=== PATIENT | male | born 1955 | race African-American/Black ===

== ENCOUNTER 2016-07-02 22:22 | Inpatient (IN) | payer OTHER ==
[~2016-07-02] VITALS: Ht 177.8 cm; Wt 72.6 kg
[2016-07-02 22:46] VITALS: BP 181/79
[2016-07-02 23:06] VITALS: BP 153/87
[2016-07-03] MEDS ORDERED: Morphine Sulfate 4mg/ml Inj IVP ONE (00:15)
[2016-07-03] MEDS ORDERED: Vancomycin 1.5gm/D5W 300ml 325 ML IVPB ONE (00:15)
[2016-07-03 01:11] LABS: MEAN CORPUSCULAR HEMOGLOBIN 27.9 PG (27.0-31.0); MEAN CORPUSCULAR HGB CONC 32.9 G/DL (32.0-36.0); MEAN CORPUSCULAR VOLUME 85 FL (80-99); PLATELET COUNT 83 K/UL (150-450); RED CELL DISTRIBUTION WIDTH 13.6 % (11.6-14.8); WHITE BLOOD COUNT 5.2 K/UL (4.8-10.8)
[2016-07-03 01:18] LABS: INR 1.3 (0.9-1.1); PROTHROMBIN TIME 13.6 SEC (9.30-11.50)
[2016-07-03 01:26] LABS: ALANINE AMINOTRANSFERASE 25 U/L (3-41); ALBUMIN/GLOBULIN RATIO 0.5 (1.0-2.7); ANION GAP 13 (5-15); ASPARTATE AMINO TRANSFERASE 62 U/L (5-40); CALCIUM 8.6 mg/dL (8.6-10.2); CARBON DIOXIDE 25 mEQ/L (20-30); CHLORIDE 97 mEQ/L (98-107); CREATININE 0.9 mg/dL (0.7-1.2); GLOMERULAR FILTRATION RATE > 60 mL/min (>60); HEMOLYSIS 1; POTASSIUM 3.5 mEQ/L (3.4-4.9); SODIUM 135 mEQ/L (135-145); TOTAL PROTEIN 7.7 g/dL (6.6-8.7)
[2016-07-03] MEDS ORDERED: Unasyn 3gm Inj ONE (01:28)
--- NOTE | 2016-07-03 01:29 | Emergency Room Report ---
History of Present Illness General Chief Complaint: Skin Rash/Abscess Source: Patient Present Illness HPI 61 YO M with left thigh "abscess" for 3-4 days following heroin injection to area. Denies fever/chills or overlying rash. States pain/size progressing. Denies DM, HTN, other med problems. Has had abscess before. Allergies: Coded Allergies: No Known Allergies (Unverified , 07/02/16) Patient History Past Medical History: none Past Surgical History: none Pertinent Family History: none Social History: Reports: drug use Immunizations: UTD Reviewed Nursing Documentation: PMH: Agreed, PSxH: Agreed Nursing Documentation-PMH Hx Hypertension: Yes Review of Systems All Other Systems: negative except mentioned in HPI Physical Exam Vital Signs Date Time Temp Pulse Resp B/P Pulse Ox O2 Delivery O2 Flow Rate FiO2 07/02/16 22:35 97.9 73 15 181/79 99 Room Air Sp02 EP Interpretation: reviewed, normal General Appearance: normal inspection, well appearing, no apparent distress, alert, GCS 15, non-toxic Head: normocephalic, atraumatic Eyes: bilateral eye EOMI, bilateral eye PERRL ENT: normal ENT inspection, hearing grossly normal, normal voice Neck: normal inspection, full range of motion, supple, no bony tend Respiratory: normal inspection, lungs clear, normal breath sounds, no respiratory distress, no retraction, no wheezing Cardiovascular #1: regular rate, rhythm, no edema Gastrointestinal: normal inspection, normal bowel sounds, non tender, soft, no guarding, no hernia Genitourinary: no CVA tenderness Musculoskeletal: normal inspection, back normal, normal range of motion, Saran' s Sign negative Neurologic: normal inspection, alert, oriented x3, responsive, wireline operator III-XII nml as tested, DTRs symmetric, speech normal Psychiatric: normal inspection, judgement/insight normal, memory normal Skin: kim - Left thigh: there is very large approx 8-10cm irregular bordered fluctuant, hard mass. No overlying erythema. Medical Decision Making Diagnostic Impression: Primary Impression: Abscess of left thigh Additional Impression: IVDU (intravenous drug user) ER Course 61 YO M with left thigh abscess likely from IVDU VSS. Afebrile. Concern for MRSA given IVDU PLAN: Labs, Vanc/Unasyn, CT lower extremity, admission, likely needed surgery for abscess removal EKG Diagnostic Results Rate: normal Rhythm: NSR ST Segments: no acute changes ASA given to the pt in ED: No Rhythm Strip Diag. Results EP Interpretation: yes Rate: 71 Rhythm: NSR, no PVC's, no ectopy Chest X-Ray Diagnostic Results EP Interpretation: Yes Findings: no consolidation, no effusion, no pneumothorax, no acute cardiopulmonary disease Number of Views: 1 Reevaluation Time: 04:41 Last Vital Signs Date Time Temp Pulse Resp B/P Pulse Ox O2 Delivery O2 Flow Rate FiO2 07/02/16 23:06 97.9 78 15 153/87 100 Room Air Status: improved Reevaluation Impression Labs: No leuks. H&H stable. Elevated total/direct bili and LFTs CT left lower extremity was done however radiologist reporting thast eval was limited because of "bone algorithm" instead of "soft tissue" algorithm was used to reconstruct images. I spoke to feed research technician, who states that the algorithm is pre -loaded for soft tissue. Some subQ edema is seen but no definitive fluid collection to suggest organized abscess IV Abx were given I will order soft tissue ultrasound to eval this area as well Patient still warrants admission and likely non-urgent GenSurg consult Endorsed to Dr Julian at 445am for med/surg admission Disposition: ADMITTED INPATIENT Condition: Serious Referrals: [facility] (PCP) BOB GUILLAUME M.D. Jul 03, 2016 01:29
[2016-07-03 01:36] LABS: CKMB 4.8 ng/mL (< 6.7)
[2016-07-03 01:48] LABS: BILIRUBIN,DIRECT 0.5 mg/dL (0.1-0.3)
[2016-07-03] MEDS: Ampicillin/Sulbactam Sod 3 GM in NS 110 ML IV SCH ×2 (02:10→06:15)
[2016-07-03 02:24] VITALS: BP 175/80
[2016-07-03 03:21] VITALS: BP 165/67
[2016-07-03] MEDS ORDERED: METHADONE HCL5 MG PO (03:25)
[2016-07-03] MEDS ORDERED: HYDROCHLOROTH12.5 MG ORAL (03:25)
[2016-07-03] MEDS ORDERED: LISINOPRIL5 MG ORAL (03:25)
[2016-07-03] MEDS ORDERED: IBUPROFEN600 MG ORAL (03:25)
[2016-07-03 05:08] VITALS: BP 180/72
[2016-07-03] MEDS ORDERED: Mylanta II UD 30ml ORAL PRN (07:15)
[2016-07-03] MEDS ORDERED: LORazepam Inj 2mg/ml 1ml IV PRN (07:15)
[2016-07-03] MEDS ORDERED: Heparin 5000 units/ml inj SUBQ SCH (09:00)
[2016-07-03] MEDS: Cefepime HCl 1 GM in D5W 55 ML IV SCH ×2 (09:58→21:23)
[2016-07-03] MEDS: Morphine Sulfate 2mg/ml Inj IVP PRN ×3 (09:59→21:29)
--- NOTE | 2016-07-03 10:17 | Diagnostic Imaging Report ---
Indication: SOB Technique: One view of the chest Comparison: none Findings: Patient is rotated to the right. Lungs and pleural spaces are clear. Heart size is normal. Impression: No acute process
--- NOTE | 2016-07-03 10:31 | Diagnostic Imaging Report ---
Indication: Left thigh pain Technique: IV administration nonionic contrast. Spiral acquisitions obtained through the left thigh. Multiplanar reconstructions were generated. Total dose length product 749 mGycm. CTDIvol(s) 5 and 5 mGy. Radiation dose was minimized using automated exposure control Comparison: None Findings: Images are somewhat limited due to image noise. There is an area of edema and the left posterior subcutaneous fat. This measures approximately 6 x 3 x 10 cm. Is made to some extent involves the lateral gluteus ab muscle No definite discrete walled off fluid collection to suggest abscess is demonstrated. No evidence of significant vascular occlusive disease is demonstrated. No significant bony abnormality is demonstrated. Impression: Exam with soft tissue cellulitis. No definite walled off collection to suggest abscess is demonstrated. However, exam is somewhat limited by image noise and use of early arterial phase acquisition. If there is high clinical suspicion of abscess, consider further evaluation with ultrasound No evidence of significant vascular disease. The CT scanner at [facility] is accredited by the [employer] and the scans are performed using protocols designed to limit radiation exposure to as low as reasonably achievable to attain images of sufficient resolution adequate for diagnostic evaluation.
[2016-07-03 11:59] VITALS: BP 187/82
[2016-07-03] MEDS: Vancomycin 1250mg/D5W 275ml IVPB SCH ×2 (13:07)
--- NOTE | 2016-07-03 15:34 | Consultation ---
Consult Note Consult Note ID CONSULT: Jose# [id number] Assessment/Plan ASSESSMENT: 61 y/o male with: // Left thigh cellulitis, probable abscess after skin popping - US: pending - CT: soft tissue cellulitis. No definite walled off collection to suggest abscess is demonstrated. However, exam is somewhat limited // Afebrile without leukocytosis // Elevated LFTs r/o hepatitis - h/o HCV SP Rx // Thrombocytopenia // IVDA ( heroin ) // NKDA // Full Code PLAN: - continue empiric IV vancomycin, cefepime d# 1 - check HIV, hepatitis panel - I&D - f/u cultures - f/u US - monitor CBC, temperatures - monitor BMP Thanks! Will follow YORDAN ALVARADO Jul 03, 2016 15:34
[2016-07-03 16:00] VITALS: BP 153/75
--- NOTE | 2016-07-03 17:42 | Consultation ---
History of Present Illness General Date patient seen: Jul 03, 2016 Chief Complaint: Skin Rash/Abscess Referring physician: Dr starr Reason for Consultation: Inpatient management Present Illness HPI 61 year old male with hx of drug abuse, presented to [facility] after injection some heroin subcutanesly a few days ago and started having pain and swelling at the injection site. Pt was diagnosed to have cellulitis and possible abscess at the injection site and admitted for further treatment. Allergies: Coded Allergies: No Known Allergies (Unverified , 07/02/16) Medication History Scheduled Hydrochlorothiazide* (Hydrochlorothiazide*), 12.5 MG ORAL DAILY, (Reported) Ibuprofen* (Motrin*), 600 MG ORAL FOUR TIMES A DAY, (Reported) Lisinopril (Lisinopril*), 5 MG ORAL DAILY, (Reported) Methadone Hcl* (Methadone*), 5 MG PO DAILY, (Reported) Patient History Healthcare decision maker Resuscitation status Advanced Directive on File Past Medical/Surgical History Past Medical/Surgical History: (1) IVDU (intravenous drug user) Review of Systems All Other Systems: negative except mentioned in HPI Physical Exam HEENT: normocephalic, atraumatic Neck: non-tender, supple Respiratory/Chest: chest wall non-tender, normal breath sounds Cardiovascular/Chest: normal peripheral pulses, normal rate Abdomen: normal bowel sounds, soft Genitourinary/Rectal: normal genital exam Last 24 Hour Vital Signs Date Time Temp Pulse Resp B/P Pulse Ox O2 Delivery O2 Flow Rate FiO2 07/03/16 16:41 98.6 07/03/16 13:06 187/82 07/03/16 11:59 98.6 63 20 187/82 97 Room Air 63 07/03/16 05:08 97.7 82 16 180/72 100 Room Air 07/03/16 03:32 97.9 78 13 165/67 100 Room Air 63 07/03/16 03:21 97.9 63 13 165/67 100 Room Air 07/03/16 02:24 97.9 64 13 175/80 100 Room Air 07/03/16 02:03 97.9 07/02/16 23:06 97.9 78 15 153/87 100 Room Air 07/02/16 22:46 97.9 79 15 181/79 99 Room Air 07/02/16 22:35 97.9 73 15 181/79 99 Room Air Intake and Output 07/02/16 07/03/16 19:00 07:00 Intake Total 1110 ml Output Total 700 ml Balance 410 ml IV Total 1110 ml Output Urine Total 700 ml # Voids 1 Laboratory Tests Test 07/03/16 00:52 White Blood Count 5.2 K/UL (4.8-10.8) Red Blood Count 4.20 M/UL (4.70-6.10) L Hemoglobin 11.7 G/DL (14.2-18.0) L Hematocrit 35.6 % (42.0-52.0) L Mean Corpuscular Volume 85 FL (80-99) Mean Corpuscular Hemoglobin 27.9 PG (27.0-31.0) Mean Corpuscular Hemoglobin Concent 32.9 G/DL (32.0-36.0) Red Cell Distribution Width 13.6 % (11.6-14.8) Platelet Count 83 K/UL (150-450) L Mean Platelet Volume 9.0 FL (6.5-10.1) Neutrophils (%) (Auto) % (45.0-75.0) Lymphocytes (%) (Auto) % (20.0-45.0) Monocytes (%) (Auto) % (1.0-10.0) Eosinophils (%) (Auto) % (0.0-3.0) Basophils (%) (Auto) % (0.0-2.0) Prothrombin Time 13.6 SEC (9.30-11.50) H Prothromb Time International Ratio 1.3 (0.9-1.1) H Activated Partial Thromboplast Time 31 SEC (23-33) Sodium Level 135 mEQ/L (135-145) Potassium Level 3.5 mEQ/L (3.4-4.9) Chloride Level 97 mEQ/L (98-107) L Carbon Dioxide Level 25 mEQ/L (20-30) Anion Gap 13 (5-15) Blood Urea Nitrogen 12 mg/dL (7-23) Creatinine 0.9 mg/dL (0.7-1.2) Estimat Glomerular Filtration Rate > 60 mL/min (>60) Glucose Level 94 mg/dL (74-106) Calcium Level 8.6 mg/dL (8.6-10.2) Total Bilirubin 1.4 mg/dL (0.0-1.2) H Direct Bilirubin 0.5 mg/dL (0.1-0.3) H Aspartate Amino Transf (AST/SGOT) 62 U/L (5-40) H Alanine Aminotransferase (ALT/SGPT) 25 U/L (3-41) Alkaline Phosphatase 77 U/L (40-129) Creatine Kinase MB 4.8 ng/mL (< 6.7) Total Protein 7.7 g/dL (6.6-8.7) Albumin 2.6 g/dL (3.5-5.2) L Globulin 5.1 g/dL Albumin/Globulin Ratio 0.5 (1.0-2.7) L Height (Feet): 5 Height (Inches): 10.00 Weight (Pounds): 160 Medications Current Medications Medications (Trade) Dose Ordered Sig/Carrington Route PRN Reason Start Time Stop Time Status Last Admin Dose Admin Acetaminophen (Tylenol) 650 mg Q4H PRN ORAL T>100.5 07/03/16 07:15 08/02/16 07:14 Al Hydroxide/Mg Hydroxide (Mylanta II) 30 ml Q6H PRN ORAL dyspepsia 07/03/16 07:15 08/02/16 07:14 Cefepime HCl 1 gm/ Dextrose 55 ml @ 110 mls/hr Q12HR IV 07/03/16 09:00 07/10/16 08:59 07/03/16 09:58 Clonidine HCl (Catapres) 0.1 mg Q4H PRN ORAL SBP>160 07/03/16 11:30 08/02/16 11:29 07/03/16 13:06 Dextrose (Dextrose 50%) STAT PRN IV Hypoglycemia 07/03/16 07:15 08/02/16 07:14 Lorazepam (Ativan 2mg/ml 1ml) 0.5 mg Q4H PRN IV For Anxiety 07/03/16 07:15 07/10/16 07:14 Methadone HCl (Methadone HCl) 55 mg DAILY ORAL 07/04/16 09:00 07/11/16 08:59 UNV Morphine Sulfate (Morphine Sulfate) 1 mg Q4H PRN IVP PAIN 4-10 07/03/16 07:15 07/10/16 07:14 07/03/16 16:11 Ondansetron HCl (Zofran) 4 mg Q6H PRN IVP Nausea & Vomiting 07/03/16 07:15 08/02/16 07:14 Polyethylene Glycol (Miralax) 17 gm HSPRN PRN ORAL Constipation 07/03/16 21:00 08/02/16 20:59 Vancomycin HCl 1 ea 1 ea DAILY PRN MISC Per rx protocol 07/03/16 07:15 08/02/16 07:14 Vancomycin HCl/ Dextrose (Vancomycin/D5W) 275 ml @ 183.333 mls/hr Q12HR@0000,1200 IVPB 07/03/16 12:00 07/08/16 11:59 07/03/16 13:07 Zolpidem Tartrate (Ambien) 5 mg HSPRN PRN ORAL Insomnia 07/03/16 21:00 08/02/16 20:59 Assessment/Plan Problem List: (1) Cellulitis ICD Codes: L03.90 - Cellulitis, unspecified SNOMED: 262820652 (2) IVDU (intravenous drug user) ICD Codes: F19.90 - Other psychoactive substance use, unspecified, uncomplicated SNOMED: 510443005 Assessment/Plan IV antibiotics check hiv status VINNIE HOSKINS Jul 03, 2016 17:42
[2016-07-03 19:00] VITALS: BP 149/72
[2016-07-03] MEDS ORDERED: Miralax 17gm pkt ORAL PRN (21:00)
[2016-07-03] MEDS ORDERED: Zolpidem 5mg tab ORAL PRN (21:00)
--- NOTE | 2016-07-03 22:49 | Consultation ---
DATE OF CONSULTATION: 07/03/2016 INFECTIOUS DISEASE CONSULTATION CONSULTING PHYSICIAN: Stu Barney M.D. REQUESTING PHYSICIAN: Alok Julian M.D. REASON FOR CONSULTATION: Abscess. HISTORY OF PRESENT ILLNESS: This is a 61-year-old male with a history of IV drug abuse, admitted on 07/03/2016, with left hip pain. The patient had skin-popped heroin . He had a CT, which shows cellulitis and no abscess, but it was a suboptimal study. An ultrasound is pending. He is afebrile without leukocytosis. Blood cultures are pending and he has been started on empiric IV vancomycin and cefepime. ID now consulted to assist in management. PAST MEDICAL HISTORY: 1. History of hepatitis C, status post treatment. 2. Hypertension. PAST SURGICAL HISTORY: None. FAMILY HISTORY: Noncontributory. SOCIAL HISTORY: History of intravenous heroin abuse. ALLERGIES: No known drug allergies. MEDICATIONS: 1. Vancomycin. 2. Cefepime. 3. Methadone. REVIEW OF SYSTEMS: As per history of present illness. Ten systems reviewed. All pertinent positives and negatives noted. PHYSICAL EXAMINATION: VITAL SIGNS: Maximum temperature 98.6 degrees, blood pressure 187/82, heart rate in the 70s, respiratory rate 20, and saturating 97% on room air. GENERAL: No apparent distress. Nontoxic appearing. CARDIOVASCULAR: Regular rate and rhythm. No murmurs. PULMONARY: Clear to auscultation bilaterally. ABDOMEN: Bowel sounds present. Soft, nondistended, and nontender. EXTREMITIES: Left hip tenderness, fluctuance, and warmth. LABORATORY DATA: White blood cell count 5.2, hemoglobin 11.7, and platelets 83,000. Sodium 135, potassium 3.5, chloride 97, bicarbonate 25, BUN 12, and creatinine 0.9. AST 62, ALT 25, and alkaline phosphatase 77. Total bilirubin 1.4. Albumin 2.6. MICROBIOLOGY: 1. 07/03/2016 blood culture pending. IMAGIN. On 07/03/2016 CT of the left hip with cellulitis and no abscess, but it had a suboptimal images. 2. On 07/03/2016 chest x-ray, no acute findings. 3. On 07/03/2016, ultrasound pending. 4. 07/03/2016, arterial and venous Doppler is pending. ASSESSMENT: 1. Left thigh cellulitis and probable abscess after skin-popping. Ultrasound is pending. No abscess on CT with a suboptimal study. 2. Afebrile without leukocytosis. 3. Elevated liver function tests, rule out hepatitis. He reportedly has a history of hepatitis C, status post treatment. 4. Thrombocytopenia. 5. Intravenous drug abuse. 6. No known drug allergies. 7. Full Code. PLAN: 1. Continue empiric IV vancomycin and cefepime day #1. 2. Check human immunodeficiency virus and hepatitis panel. 3. Follow up cultures. 4. Follow up ultrasound and incision and drainage if indicated. 5. Monitor CBC and temperatures. 6. Monitor BMP. Thank you. We will follow. Stu Barney M.D. DR: Ashvin JOB#: [id number] CC: Alok Julian M.D.; Fax#: [phone] Smith, M.D. ; Fax#: [phone]
--- NOTE | 2016-07-03 23:12 | History & Physical ---
History and Physical History & Physicial The patient was seen and examined at bedside and all new and available data was reviewed in the patients chart. Last 24 Hour Vital Signs Date Time Temp Pulse Resp B/P Pulse Ox O2 Delivery O2 Flow Rate FiO2 07/03/16 21:59 98.8 07/03/16 19:00 98.8 71 18 149/72 97 Room Air 07/03/16 16:00 99.1 69 18 153/75 98 Room Air 69 07/03/16 13:06 187/82 07/03/16 11:59 98.6 63 20 187/82 97 Room Air 63 07/03/16 05:08 97.7 82 16 180/72 100 Room Air 07/03/16 03:32 97.9 78 13 165/67 100 Room Air 63 07/03/16 03:21 97.9 63 13 165/67 100 Room Air 07/03/16 02:24 97.9 64 13 175/80 100 Room Air 07/03/16 02:03 97.9 (Patient was seen earlier today. Signature timestamp does not reflect patient encounter time) Alok Molina MD, MD Jul 03, 2016 23:12
[2016-07-04] VITALS (7 sets, daily range): BP systolic 139–169; BP diastolic 67–86
[2016-07-04] MEDS: Vancomycin 1250mg/D5W 275ml IVPB SCH ×4 (00:09→12:41)
[2016-07-04 07:39] LABS: EOSINOPHILS % (AUTO) 0.5 % (0.0-3.0); LYMPHOCYTES % (AUTO) 17.2 % (20.0-45.0); MEAN CORPUSCULAR HEMOGLOBIN 27.9 PG (27.0-31.0); MEAN CORPUSCULAR VOLUME 85 FL (80-99); MEAN PLATELET VOLUME 8.7 FL (6.5-10.1); MONOCYTES % (AUTO) 16.1 % (1.0-10.0); NEUTROPHILS % (AUTO) 61.2 % (45.0-75.0); PLATELET COUNT 136 K/UL (150-450); RED BLOOD COUNT 4.38 M/UL (4.70-6.10); RED CELL DISTRIBUTION WIDTH 13.5 % (11.6-14.8); WHITE BLOOD COUNT 4.6 K/UL (4.8-10.8)
[2016-07-04 07:47] LABS: THYROID STIMULATING HORMONE 0.417 uIU/mL (0.300-4.500)
[2016-07-04 08:13] LABS: ALANINE AMINOTRANSFERASE 21 U/L (3-41); ALBUMIN/GLOBULIN RATIO 0.5 (1.0-2.7); ANION GAP 14 (5-15); ASPARTATE AMINO TRANSFERASE 48 U/L (5-40); CALCIUM 8.3 mg/dL (8.6-10.2); CARBON DIOXIDE 24 mEQ/L (20-30); CHLORIDE 99 mEQ/L (98-107); CHOLESTEROL 65 mg/dL (< 200); CHOLESTEROL/HDL RATIO 2.4 (3.3-4.4); CREATININE 0.9 mg/dL (0.7-1.2); GLOMERULAR FILTRATION RATE > 60 mL/min (>60); HEMOLYSIS 8; LDL CHOLESTEROL (CALC.) 29 mg/dL (60-99); POTASSIUM 3.4 mEQ/L (3.4-4.9); SODIUM 137 mEQ/L (135-145); TOTAL PROTEIN 6.9 g/dL (6.6-8.7)
[2016-07-04] MEDS: Cefepime HCl 1 GM in D5W 55 ML IV SCH ×2 (10:01→20:22)
--- NOTE | 2016-07-04 10:05 | Diagnostic Imaging Report ---
Indication: Left hip swelling Technique: Limited ultrasound of the left hip Comparison: None Findings: In the area of swelling of the left hip, there is an approximately 7 x 4 x 5 cm complex irregular apparent fluid collection. Impression: Approximately 7 x 4 x 5 cm complex irregular apparent fluid collection of the left hip soft tissues. Abscess should be considered and further evaluation recommended.
[2016-07-04] MEDS: Morphine Sulfate 2mg/ml Inj IVP PRN (10:18)
--- NOTE | 2016-07-04 14:11 | Internal Med Progress Note ---
Subjective Physician Name Alok Julian Attending Physician Alok Julian MD Current Medications Medications (Trade) Dose Ordered Sig/Carrington Route PRN Reason Start Time Stop Time Status Last Admin Dose Admin Acetaminophen (Tylenol) 650 mg Q4H PRN ORAL T>100.5 07/03/16 07:15 08/02/16 07:14 Al Hydroxide/Mg Hydroxide (Mylanta II) 30 ml Q6H PRN ORAL dyspepsia 07/03/16 07:15 08/02/16 07:14 Cefepime HCl 1 gm/ Dextrose 55 ml @ 110 mls/hr Q12HR IV 07/03/16 09:00 07/10/16 08:59 07/04/16 10:01 Clonidine HCl (Catapres) 0.1 mg Q4H PRN ORAL SBP>160 07/03/16 11:30 08/02/16 11:29 07/04/16 00:09 Dextrose (Dextrose 50%) STAT PRN IV Hypoglycemia 07/03/16 07:15 08/02/16 07:14 Lorazepam (Ativan 2mg/ml 1ml) 0.5 mg Q4H PRN IV For Anxiety 07/03/16 07:15 07/10/16 07:14 Methadone HCl (Methadone HCl) 55 mg DAILY ORAL 07/04/16 09:00 07/11/16 08:59 07/04/16 12:45 Morphine Sulfate (Morphine Sulfate) 1 mg Q4H PRN IVP PAIN 4-10 07/03/16 07:15 07/10/16 07:14 07/04/16 10:18 Ondansetron HCl (Zofran) 4 mg Q6H PRN IVP Nausea & Vomiting 07/03/16 07:15 08/02/16 07:14 Polyethylene Glycol (Miralax) 17 gm HSPRN PRN ORAL Constipation 07/03/16 21:00 08/02/16 20:59 Vancomycin HCl 1 ea 1 ea DAILY PRN MISC Per rx protocol 07/03/16 07:15 08/02/16 07:14 Vancomycin HCl/ Dextrose (Vancomycin/D5W) 275 ml @ 183.333 mls/hr Q12HR@0000,1200 IVPB 07/03/16 12:00 07/08/16 11:59 07/04/16 12:41 Zolpidem Tartrate (Ambien) 5 mg HSPRN PRN ORAL Insomnia 07/03/16 21:00 08/02/16 20:59 Allergies: Coded Allergies: No Known Allergies (Unverified , 07/02/16) Subjective awake, alert, responsive, NAD Objective Last Vital Signs Date Time Temp Pulse Resp B/P Pulse Ox O2 Delivery O2 Flow Rate FiO2 07/04/16 11:40 97.8 62 19 147/68 98 Room Air Edema: trace edema Laboratory Tests Test 07/04/16 05:45 07/04/16 11:15 White Blood Count 4.6 K/UL (4.8-10.8) L Red Blood Count 4.38 M/UL (4.70-6.10) L Hemoglobin 12.2 G/DL (14.2-18.0) L Hematocrit 37.0 % (42.0-52.0) L Mean Corpuscular Volume 85 FL (80-99) Mean Corpuscular Hemoglobin 27.9 PG (27.0-31.0) Mean Corpuscular Hemoglobin Concent 33.0 G/DL (32.0-36.0) Red Cell Distribution Width 13.5 % (11.6-14.8) Platelet Count 136 K/UL (150-450) #L Mean Platelet Volume 8.7 FL (6.5-10.1) Neutrophils (%) (Auto) 61.2 % (45.0-75.0) Lymphocytes (%) (Auto) 17.2 % (20.0-45.0) L Monocytes (%) (Auto) 16.1 % (1.0-10.0) H Eosinophils (%) (Auto) 0.5 % (0.0-3.0) Basophils (%) (Auto) 5.0 % (0.0-2.0) H Sodium Level 137 mEQ/L (135-145) Potassium Level 3.4 mEQ/L (3.4-4.9) Chloride Level 99 mEQ/L (98-107) Carbon Dioxide Level 24 mEQ/L (20-30) Anion Gap 14 (5-15) Blood Urea Nitrogen 14 mg/dL (7-23) Creatinine 0.9 mg/dL (0.7-1.2) Estimat Glomerular Filtration Rate > 60 mL/min (>60) Glucose Level 67 mg/dL (74-106) L Hemoglobin A1c 5.0 % (< 6.0) Calcium Level 8.3 mg/dL (8.6-10.2) L Total Bilirubin 0.9 mg/dL (0.0-1.2) Aspartate Amino Transf (AST/SGOT) 48 U/L (5-40) H Alanine Aminotransferase (ALT/SGPT) 21 U/L (3-41) Alkaline Phosphatase 75 U/L (40-129) Total Protein 6.9 g/dL (6.6-8.7) Albumin 2.3 g/dL (3.5-5.2) L Globulin 4.6 g/dL Albumin/Globulin Ratio 0.5 (1.0-2.7) L Triglycerides Level 43 mg/dL (< 150) Cholesterol Level 65 mg/dL (< 200) LDL Cholesterol 29 mg/dL (60-99) L HDL Cholesterol 27 mg/dL (> 60) Cholesterol/HDL Ratio 2.4 (3.3-4.4) L Thyroid Stimulating Hormone (TSH) 0.417 uIU/mL (0.300-4.500) Hepatitis A IgM Antibody Pending Hepatitis B Surface Antigen Pending Hepatitis B Core IgM Antibody Pending Hepatitis C Antibody Pending HIV (1&2) Antibody Rapid Negative (NEGATIVE) Vancomycin Level Trough 13.3 ug/mL (5.0-12.0) H Microbiology Date/Time Source Procedure Growth Status 07/03/16 01:05 Blood Blood Culture - Preliminary NO GROWTH AFTER 24 HOURS Resulted 07/03/16 00:52 Blood Blood Culture - Preliminary NO GROWTH AFTER 24 HOURS Resulted Intake and Output 07/03/16 07/04/16 19:00 07:00 Intake Total 480 ml 835 ml Balance 480 ml 835 ml Intake Oral 480 ml 780 ml IV Total 55 ml # Voids 8 # Bowel Movements 2 Objective GENERAL: No apparent distress. Nontoxic appearing. HEAD: PERRLA, EOMI NECK: Supply, No JVD CARDIOVASCULAR: Regular rate and rhythm. No murmurs. PULMONARY: Clear to auscultation bilaterally. ABDOMEN: Bowel sounds present. Soft, nondistended, and nontender. EXTREMITIES: Left hip tenderness, fluctuance, and warmth. No edema Assessment/Plan Assessment/Plan ASSESSMENT: 1. Left thigh cellulitis / abscess after skin-popping. 2. Afebrile without leukocytosis. 3. Elevated liver function tests, rule out hepatitis.history of hepatitis C, status post treatment. 4. Thrombocytopenia. 5. Intravenous drug abuse. 6. Hypertension. PLAN: 1. Continue empiric IV vancomycin and cefepime day #2. 2. No known drug allergies. 3. Follow up cultures. 4. Full Code. 5. Monitor Labs 6. Surgery consult for I&D abscess. Alok Julian MD Jul 04, 2016 14:11
--- NOTE | 2016-07-04 18:19 | History and Physical Report ---
DATE OF ADMISSION: 07/03/2016 NOTE: "POOR AUDIO QUALITY" CHIEF COMPLAINT: Left hip abscess. HISTORY OF PRESENT ILLNESS: This is a 61-year-old gentleman with past medical history significant for IV drug abuse with skin-popping heroin, history of hepatitis C positive, and hypertension, who has presented to the hospital complaining about left hip pain. The patient stated several days ago, he had a heroin injection to the left thigh and subsequently started having pain progressively worsening over the past five days. It got progressively worse and he decided to come to the hospital. Shortly after initial evaluation in the emergency room, the patient was admitted to the hospital with left thigh cellulitis and possible abscess as a result of skin popping. PAST MEDICAL HISTORY: As above. History of hypertension, hepatitis C positive, and history of left upper extremity abscess. MEDICATIONS: Medication at home is significant for methadone 5 mg p.o. daily, lisinopril 5 mg daily, ibuprofen 600 mg four times a day, and hydrochlorothiazide 12.5 p.o. daily. ALLERGIES: No known drug allergy. SOCIAL HISTORY: The patient smokes four to five cigarettes a day. He uses heroin injections. He denies any alcohol abuse. He is on methadone at this time. FAMILY HISTORY: Noncontributory. REVIEW OF SYSTEMS: Mostly as above. Denies any dysuria, frequency, hematuria, or hematochezia. Denies any hemoptysis or hematochezia. Denies any suicidal or homicidal ideation. PHYSICAL EXAMINATION: VITAL SIGNS: Upon arrival to hospital, temperature 97.9 degrees, pulse of 72, respirations 15, and blood pressure 181/79. GENERAL: The patient is awake , responsive, and in no acute distress. HEAD AND NECK: Pupils are reactive to light. Extraocular movements are intact. Neck is supple. No JVD. LUNGS: Clear. No wheezing or rales. HEART: Positive S1 and S2. Regular rhythm. No gallops. ABDOMEN: Soft, distended, and nontender. Positive bowel sounds. EXTREMITIES: No cyanosis, clubbing, or edema. Over the left hip, there is noted erythema as well as a bulging soft tissue, possible underlying abscess was observed. Laboratory Data: On admission, WBC 5.3, hemoglobin 11, hematocrit 35, and platelets 83,000. Sodium 135, potassium 3.5, chloride 97, bicarbonate 25, BUN 12, creatinine 0.9, glucose 94. Total bilirubin of 1.4 and direct bilirubin 0.5. AST of 62 and ALT of 25. PT of 13, INR 1.3, and PTT of 31. The patient had chest x-ray, no acute process. CT of the femur showed that soft tissue cellulitis, no evidence of collection to suggest abscess. It demonstrated, however, examination. If there is high suspicion for abscess, consider evaluation with ultrasound. No evidence of significant vascular disease. ASSESSMENT: 1. Left hip cellulitis, possible underlying abscess. 2. Hypertension. 3. Thrombocytopenia. 4. Hepatitis C positive. PLAN: Admit the patient to Med/Surg. We will follow up with Dr. Barney, consultation from ID. Abx: vancomycin and cefepime and follow up with culture and consider ultrasound and drainage of the abscess if indicated, and we will monitor laboratory as well as culture in the morning. Code status is Full Code. DVT prophylaxis with heparin subcutaneous. Alok Julian M.D. DR: KASSANDRA JOB#: [id number] CC: TREY
--- NOTE | 2016-07-04 18:27 | Pulmonology Progress Note ---
Assessment/Plan Problems: (1) Cellulitis (2) IVDU (intravenous drug user) Assessment/Plan improivng iv antibioitcs check cultures surgery consult check wbc Subjective ROS Limited/Unobtainable: No Allergies: Coded Allergies: No Known Allergies (Unverified , 07/02/16) Objective Last 24 Hour Vital Signs Date Time Temp Pulse Resp B/P Pulse Ox O2 Delivery O2 Flow Rate FiO2 07/04/16 16:00 99.0 80 16 146/70 93 Room Air 07/04/16 11:40 97.8 62 19 147/68 98 Room Air 07/04/16 10:45 97.8 07/04/16 07:48 98.1 62 19 154/80 99 Room Air 07/04/16 04:00 97.9 60 18 155/86 100 Room Air 07/04/16 01:15 150/76 07/04/16 00:09 169/80 07/04/16 00:00 97.9 62 18 169/80 98 Room Air 07/03/16 19:00 98.8 71 18 149/72 97 Room Air Intake and Output 07/03/16 07/04/16 19:00 07:00 Intake Total 480 ml 835 ml Balance 480 ml 835 ml Intake Oral 480 ml 780 ml IV Total 55 ml # Voids 8 # Bowel Movements 2 General Appearance: WD/WN HEENT: normocephalic Respiratory/Chest: chest wall non-tender Cardiovascular: normal peripheral pulses Abdomen: normal bowel sounds Microbiology Date/Time Source Procedure Growth Status 07/03/16 01:05 Blood Blood Culture - Preliminary NO GROWTH AFTER 24 HOURS Resulted 07/03/16 00:52 Blood Blood Culture - Preliminary NO GROWTH AFTER 24 HOURS Resulted Laboratory Tests 07/04/16 05:45: White Blood Count 4.6L, Red Blood Count 4.38L, Hemoglobin 12.2L, Hematocrit 37.0L, Mean Corpuscular Volume 85, Mean Corpuscular Hemoglobin 27.9, Mean Corpuscular Hemoglobin Concent 33.0, Red Cell Distribution Width 13.5, Platelet Count 136#L, Mean Platelet Volume 8.7, Neutrophils (%) (Auto) 61.2, Lymphocytes (%) (Auto) 17.2L, Monocytes (%) (Auto) 16.1H, Eosinophils (%) (Auto) 0.5, Basophils (%) (Auto) 5.0H, Sodium Level 137, Potassium Level 3.4, Chloride Level 99, Carbon Dioxide Level 24, Anion Gap 14, Blood Urea Nitrogen 14, Creatinine 0.9, Estimat Glomerular Filtration Rate > 60, Glucose Level 67L, Hemoglobin A1c 5.0, Calcium Level 8.3L, Total Bilirubin 0.9, Aspartate Amino Transf (AST/SGOT) 48H, Alanine Aminotransferase (ALT/SGPT) 21, Alkaline Phosphatase 75, Total Protein 6.9, Albumin 2.3L, Globulin 4.6, Albumin/Globulin Ratio 0.5L, Triglycerides Level 43, Cholesterol Level 65, LDL Cholesterol 29L, HDL Cholesterol 27, Cholesterol/HDL Ratio 2.4L, Thyroid Stimulating Hormone (TSH ) 0.417, Hepatitis A IgM Antibody [Pending], Hepatitis B Surface Antigen [ Pending], Hepatitis B Core IgM Antibody [Pending], Hepatitis C Antibody [Pending ], HIV (1&2) Antibody Rapid Negative 07/04/16 11:15: Vancomycin Level Trough 13.3H Current Medications Medications (Trade) Dose Ordered Sig/Carrington Route PRN Reason Start Time Stop Time Status Last Admin Dose Admin Acetaminophen (Tylenol) 650 mg Q4H PRN ORAL T>100.5 07/03/16 07:15 08/02/16 07:14 Al Hydroxide/Mg Hydroxide (Mylanta II) 30 ml Q6H PRN ORAL dyspepsia 07/03/16 07:15 08/02/16 07:14 Cefepime HCl 1 gm/ Dextrose 55 ml @ 110 mls/hr Q12HR IV 07/03/16 09:00 07/10/16 08:59 07/04/16 10:01 Clonidine HCl (Catapres) 0.1 mg Q4H PRN ORAL SBP>160 07/03/16 11:30 08/02/16 11:29 07/04/16 00:09 Dextrose (Dextrose 50%) STAT PRN IV Hypoglycemia 07/03/16 07:15 08/02/16 07:14 Heparin Sodium (Porcine) (Heparin 5000 units/ml) 5,000 units EVERY 12 HOURS SUBQ 07/04/16 21:00 08/03/16 20:59 Lorazepam (Ativan 2mg/ml 1ml) 0.5 mg Q4H PRN IV For Anxiety 07/03/16 07:15 07/10/16 07:14 Methadone HCl (Methadone HCl) 55 mg DAILY ORAL 07/04/16 09:00 07/11/16 08:59 07/04/16 12:45 Morphine Sulfate (Morphine Sulfate) 1 mg Q4H PRN IVP PAIN 4-10 07/03/16 07:15 07/10/16 07:14 07/04/16 10:18 Ondansetron HCl (Zofran) 4 mg Q6H PRN IVP Nausea & Vomiting 07/03/16 07:15 08/02/16 07:14 Polyethylene Glycol (Miralax) 17 gm HSPRN PRN ORAL Constipation 07/03/16 21:00 08/02/16 20:59 Vancomycin HCl 1 ea 1 ea DAILY PRN MISC Per rx protocol 07/03/16 07:15 08/02/16 07:14 Vancomycin HCl/ Dextrose (Vancomycin/D5W) 275 ml @ 183.333 mls/hr Q12HR@0000,1200 IVPB 07/03/16 12:00 07/08/16 11:59 07/04/16 12:41 Zolpidem Tartrate (Ambien) 5 mg HSPRN PRN ORAL Insomnia 07/03/16 21:00 08/02/16 20:59 VINNIE HOSKINS Jul 04, 2016 18:27
[2016-07-04] MEDS: Heparin 5000 units/ml inj SUBQ SCH (20:22)
--- NOTE | 2016-07-04 21:49 | Pre-op HX & Phy Repo 2 SIG ---
DATE OF ADMISSION: 07/03/2016 PREOPERATIVE CONSULTATION REASON FOR CONSULTATION: Abscess of the left hip. HISTORY OF PRESENT ILLNESS: This is a 61-year-old male with a long history of IV drug abuse who presented to the emergency room for pain and swelling in the left hip. He stated that he has been skin popping and about three to four days ago, he developed pain in his left hip, which has gradually increased and enlarged. He denied any fever, but he had chills. He claimed that he has been using drugs for about 25-40 years. PAST MEDICAL HISTORY: He denies allergies, asthma, diabetes, cardiac and renal diseases. He has a history of hypertension. PAST SURGICAL HISTORY: Surgeries, none. MEDICATIONS: Methadone 55 mg, hydrochlorothiazide and lisinopril. SOCIAL HISTORY: This is a 61-year-old male, with six children, unemployed. Denies drinking, but smokes five to six cigarettes per day. REVIEW OF SYSTEMS: At this time, his only concern is the pain in the left hip. PHYSICAL EXAMINATION: GENERAL: The patient appeared to be a well-developed and well-nourished, 61-year-old male, lying on the bed, complaining of pain in the left hip. HEENT: Head is normocephalic and atraumatic. Eyes, pupils are equal, round, and reactive to light. Mouth is clear. He has a full denture. NECK: There is no palpable thyromegaly or adenopathy. CHEST: Clear to auscultation and percussion. HEART: There is no gallop or murmur. S1 and S2 are within normal limits. ABDOMEN: Soft, flat, and nontender. He has a small umbilical hernia. There is no palpable organomegaly and bowel sounds are audible. GENITAL: Normal. EXTREMITIES: At the left hip, he has a large area of induration with fluctuation at the middle. ASSESSMENT: Abscess of the left hip. PLAN: The patient has been scheduled for incision and drainage of the abscess in the morning. The risks and benefits have been explained to him. He understood and granted consent. Glenys Segura M.D. DR: ALBERTA JOB#: [id number] CC:
[2016-07-04] MEDS ORDERED: Tubing IV Secondary IV ONE (22:52)
[2016-07-04] MEDS ORDERED: 1/2 NS 1000ml IV ONE (22:52)
[2016-07-04] MEDS ORDERED: NS 275ml ONE (22:52)
[2016-07-05] VITALS (14 sets, daily range): BP systolic 136–213; BP diastolic 69–97
[2016-07-05] MEDS: Vancomycin 1250mg/D5W 275ml IVPB SCH ×4 (01:04→14:15)
[2016-07-05] MEDS: Morphine Sulfate 2mg/ml Inj IVP PRN (01:27)
[2016-07-05] MEDS: Heparin 5000 units/ml inj SUBQ SCH ×2 (08:15→21:00)
[2016-07-05] MEDS: Cefepime HCl 1 GM in D5W 55 ML IV SCH ×2 (08:30→22:37)
--- NOTE | 2016-07-05 10:10 | Pre-Procedure Note/Attestation ---
Pre-Procedure Note/Attestation Complete Prior to Procedure Planned Procedure: left Procedure Narrative: Incision & Drainage of abscess left hip Indications for Procedure Pre-Operative Diagnosis: Abscess left hip Attestation I attest that I discussed the nature of the procedure; its benefits; risks and complications; and alternatives (and the risks and benefits of such alternatives ), prior to the procedure, with the patient (or the patient's legal sales utility representative). I attest that, if there was a reasonable possibility of needing a blood transfusion, the patient (or the patient's legal sales utility representative) was given the [facility] standardized written summary, pursuant to the Mumtaz Shauna Blood Safety Act ([place] Health and Safety Code # 1645, as amended). I attest that I re-evaluated the patient just prior to the surgery and that there has been no change in the patient's H&P, except as documented below: DAHIANA TEIXEIRA Jul 05, 2016 10:10
[2016-07-05] MEDS ORDERED: Lidocaine 1% MPF 10mg/ml 5ml ONE (11:20)
[2016-07-05] MEDS ORDERED: fentaNYL 100 mcg/2 mL IV ONE (11:20)
[2016-07-05] MEDS ORDERED: LR 1000ml ONE (11:20)
[2016-07-05] MEDS ORDERED: Sterile Water Irrig 1000ml IRRIG ONE (11:20)
[2016-07-05] MEDS ORDERED: Propofol 10mg/ml 20ml IV ONE (11:20)
[2016-07-05] MEDS ORDERED: NS Irrig 1000ml ONE (11:20)
[2016-07-05] MEDS ORDERED: Midazolam 2mg/2ml Inj ONE (11:20)
[2016-07-05] MEDS ORDERED: Triple abx Irrig 1000ml IRRIG ONE (11:30)
--- NOTE | 2016-07-05 11:35 | Infectious Diseases Prog Note ---
Assessment/Plan Assessment/Plan ID CONSULT: Jose# [id number] Assessment/Plan ASSESSMENT: 61 y/o male with: // Left thigh cellulitis, probable abscess after skin popping - US: Approximately 7 x 4 x 5 cm complex irregular apparent fluid collection of the left hip soft tissues. - CT: soft tissue cellulitis. No definite walled off collection to suggest abscess is demonstrated. However, exam is somewhat limited // Afebrile without leukocytosis // HIV :neg // Elevated LFTs r/o hepatitis - h/o HCV SP Rx // Thrombocytopenia // IVDA ( heroin ) // NKDA // Full Code PLAN: - continue empiric IV vancomycin, cefepime d# 3 - hepatitis panel:P - f/u cultures - monitor CBC, temperatures - monitor BMP - pt is OR for I&D Subjective Allergies: Coded Allergies: No Known Allergies (Unverified , 07/02/16) Subjective pt is in OR Objective Vital Signs Last 24 Hour Vital Signs Date Time Temp Pulse Resp B/P Pulse Ox O2 Delivery O2 Flow Rate FiO2 07/05/16 06:03 98.2 07/05/16 04:00 101.5 67 20 155/83 98 Room Air 07/05/16 01:27 162/96 07/05/16 00:00 99.0 61 20 162/96 98 Room Air 07/04/16 20:00 98.4 74 18 139/67 96 Room Air 07/04/16 16:00 99.0 80 16 146/70 93 Room Air 07/04/16 11:40 97.8 62 19 147/68 98 Room Air Height (Feet): 5 Height (Inches): 10.00 Weight (Pounds): 160 Microbiology Date/Time Source Procedure Growth Status 07/03/16 01:05 Blood Blood Culture - Preliminary NO GROWTH AFTER 48 HOURS Resulted 07/03/16 00:52 Blood Blood Culture - Preliminary NO GROWTH AFTER 48 HOURS Resulted Current Medications Medications (Trade) Dose Ordered Sig/Carrington Route PRN Reason Start Time Stop Time Status Last Admin Dose Admin Acetaminophen (Tylenol) 650 mg Q4H PRN ORAL T>100.5 07/03/16 07:15 08/02/16 07:14 07/05/16 05:04 Al Hydroxide/Mg Hydroxide (Mylanta II) 30 ml Q6H PRN ORAL dyspepsia 07/03/16 07:15 08/02/16 07:14 Cefepime HCl 1 gm/ Dextrose 55 ml @ 110 mls/hr Q12HR IV 07/03/16 09:00 07/10/16 08:59 07/05/16 08:30 Clonidine HCl (Catapres) 0.1 mg Q4H PRN ORAL SBP>160 07/03/16 11:30 08/02/16 11:29 07/05/16 01:27 Dextrose (Dextrose 50%) STAT PRN IV Hypoglycemia 07/03/16 07:15 08/02/16 07:14 Heparin Sodium (Porcine) (Heparin 5000 units/ml) 5,000 units EVERY 12 HOURS SUBQ 07/04/16 21:00 08/03/16 20:59 Lorazepam (Ativan 2mg/ml 1ml) 0.5 mg Q4H PRN IV For Anxiety 07/03/16 07:15 07/10/16 07:14 Methadone HCl (Methadone HCl) 55 mg DAILY ORAL 07/04/16 09:00 07/11/16 08:59 07/05/16 08:29 Morphine Sulfate (Morphine Sulfate) 1 mg Q4H PRN IVP PAIN 4-10 07/03/16 07:15 07/10/16 07:14 07/05/16 01:27 Ondansetron HCl (Zofran) 4 mg Q6H PRN IVP Nausea & Vomiting 07/03/16 07:15 08/02/16 07:14 Polyethylene Glycol (Miralax) 17 gm HSPRN PRN ORAL Constipation 07/03/16 21:00 08/02/16 20:59 Vancomycin HCl 1 ea 1 ea DAILY PRN MISC Per rx protocol 07/03/16 07:15 08/02/16 07:14 Vancomycin HCl/ Dextrose (Vancomycin/D5W) 275 ml @ 183.333 mls/hr Q12HR@0000,1200 IVPB 07/03/16 12:00 07/08/16 11:59 07/05/16 01:04 Zolpidem Tartrate (Ambien) 5 mg HSPRN PRN ORAL Insomnia 07/03/16 21:00 08/02/16 20:59 TEJINDER DYE M.D. Jul 05, 2016 11:34
--- NOTE | 2016-07-05 11:50 | Internal Med Progress Note ---
Subjective Physician Name Alok Julian Attending Physician Alok Julian MD Current Medications Medications (Trade) Dose Ordered Sig/Carrington Route PRN Reason Start Time Stop Time Status Last Admin Dose Admin Acetaminophen (Tylenol) 650 mg Q4H PRN ORAL T>100.5 07/03/16 07:15 08/02/16 07:14 07/05/16 05:04 Al Hydroxide/Mg Hydroxide (Mylanta II) 30 ml Q6H PRN ORAL dyspepsia 07/03/16 07:15 08/02/16 07:14 Cefepime HCl 1 gm/ Dextrose 55 ml @ 110 mls/hr Q12HR IV 07/03/16 09:00 07/10/16 08:59 07/05/16 08:30 Clonidine HCl (Catapres) 0.1 mg Q4H PRN ORAL SBP>160 07/03/16 11:30 08/02/16 11:29 07/05/16 01:27 Dextrose (Dextrose 50%) STAT PRN IV Hypoglycemia 07/03/16 07:15 08/02/16 07:14 Heparin Sodium (Porcine) (Heparin 5000 units/ml) 5,000 units EVERY 12 HOURS SUBQ 07/04/16 21:00 08/03/16 20:59 Lorazepam (Ativan 2mg/ml 1ml) 0.5 mg Q4H PRN IV For Anxiety 07/03/16 07:15 07/10/16 07:14 Methadone HCl (Methadone HCl) 55 mg DAILY ORAL 07/04/16 09:00 07/11/16 08:59 07/05/16 08:29 Morphine Sulfate (Morphine Sulfate) 1 mg Q4H PRN IVP PAIN 4-10 07/03/16 07:15 07/10/16 07:14 07/05/16 01:27 Ondansetron HCl (Zofran) 4 mg Q6H PRN IVP Nausea & Vomiting 07/03/16 07:15 08/02/16 07:14 Polyethylene Glycol (Miralax) 17 gm HSPRN PRN ORAL Constipation 07/03/16 21:00 08/02/16 20:59 Vancomycin HCl 1 ea 1 ea DAILY PRN MISC Per rx protocol 07/03/16 07:15 08/02/16 07:14 Vancomycin HCl/ Dextrose (Vancomycin/D5W) 275 ml @ 183.333 mls/hr Q12HR@0000,1200 IVPB 07/03/16 12:00 07/08/16 11:59 07/05/16 01:04 Zolpidem Tartrate (Ambien) 5 mg HSPRN PRN ORAL Insomnia 07/03/16 21:00 08/02/16 20:59 Allergies: Coded Allergies: No Known Allergies (Unverified , 07/02/16) Subjective awake, alert, responsive, NAD Objective Last Vital Signs Date Time Temp Pulse Resp B/P Pulse Ox O2 Delivery O2 Flow Rate FiO2 07/05/16 08:00 98.1 58 16 154/77 100 Room Air Microbiology Date/Time Source Procedure Growth Status 07/03/16 01:05 Blood Blood Culture - Preliminary NO GROWTH AFTER 48 HOURS Resulted 07/03/16 00:52 Blood Blood Culture - Preliminary NO GROWTH AFTER 48 HOURS Resulted Intake and Output 07/04/16 07/05/16 19:00 07:00 Intake Total 500 ml 415 ml Balance 500 ml 415 ml Intake Oral 500 ml 360 ml IV Total 55 ml # Voids 2 4 Objective GENERAL: No apparent distress. Nontoxic appearing. HEAD: PERRLA, EOMI NECK: Supply, No JVD CARDIOVASCULAR: Regular rate and rhythm. No murmurs. PULMONARY: Clear to auscultation bilaterally. ABDOMEN: Bowel sounds present. Soft, nondistended, and nontender. EXTREMITIES: Left hip tenderness, fluctuance, and warmth. No edema Assessment/Plan Assessment/Plan ASSESSMENT: 1. Left thigh cellulitis / abscess after skin-popping. 2. Afebrile without leukocytosis. 3. Elevated liver function tests, rule out hepatitis.history of hepatitis C, status post treatment. 4. Thrombocytopenia. 5. Intravenous drug abuse. 6. Hypertension. PLAN: 1. Continue empiric IV vancomycin and cefepime day #3. 2. No known drug allergies. 3. Follow up cultures. 4. Full Code. 5. Monitor Labs 6. Surgery consult for I&D abscess today. Alok Julian MD Jul 05, 2016 11:50
--- NOTE | 2016-07-05 11:51 | Anethesia Preoperative Eval ---
Anesthesia Pre-op PMH/ROS General Date of Evaluation: Jul 05, 2016 Time of Evaluation: 11:18 Anesthesiologist: Benito ASA Score: ASA 3 - Emergency Mallampati Score Class I : Soft palate, uvula, fauces, pillars visible Class II: Soft palate, uvula, fauces visible Class III: Soft palate, base of uvula visible Class IV: Only hard plate visible Mallampati Classification: Class II Surgeon: Imelda Diagnosis: L Hip Abscess Surgical Procedure: I and D L Hip Anesthesia History: none Social History: smoking, drug use - ABUSE Family History: no anesthesia problems Allergies: Coded Allergies: No Known Allergies (Unverified , 07/02/16) Medications: see eMAR Past Medical History Cardiovascular: Reports: HTN Endocrine: Reports: DM Hematology/Immune: Reports: other - Hep B Anesthesia Pre-op Phys. Exam Physician Exam Last Vital Signs Date Time Temp Pulse Resp B/P Pulse Ox O2 Delivery O2 Flow Rate FiO2 07/05/16 08:00 98.1 58 16 154/77 100 Room Air Constitutional: NAD Neurologic: CN 2-12 intact Cardiovascular: RRR Respiratory: CTA Gastrointestinal: S/NT/ND Airway Exam Mallampati Score: Class II MO: limited ROM: limited Teeth: missing Anesthesia Pre-op A/P Risk Assessment & Plan Assessment: ASA 3E Plan: GA, BIS Status Change Before Surgery: No Pre-Antibiotics Drug: Already Taking Ronald Oliver MD Jul 05, 2016 11:51
--- NOTE | 2016-07-05 11:57 | Brief Operative Note ---
Immediate Post Operative Note Operative Note Pre-op Diagnosis: Abscess left hip Procedure: I&D of abscess of left hip Post-op Diagnosis: same as pre-op Findings: consistent w/pre-op dx studies Surgeon: Eusebio Segura Speedboat Operator: none Anesthesiologist: Dr. Leach Anesthesia: general Specimen: none Complications: none Condition: stable Estimated Blood Loss: minimal Packing: Betadine soaked sponge Implant(s) used?: DAHIANA Dunham Jul 05, 2016 11:57
[2016-07-05] MEDS ORDERED: DiphenhydrAMINE 50mg/ml Inj IVP PRN (12:00)
[2016-07-05] MEDS ORDERED: LR 1000ml 1,000 ML IVLG SCH (12:00)
[2016-07-05] MEDS ORDERED: Hydromorphone 0.5mg/0.5ml inj IVP PRN (12:00)
[2016-07-05] MEDS ORDERED: Meperidine 25mg/ml Inj IV PRN (12:00)
[2016-07-05] MEDS ORDERED: Ketorolac 60mg Inj IV PRN (12:00)
[2016-07-05] MEDS ORDERED: Norco 5mg/325mg tab ORAL PRN (12:00)
[2016-07-05] MEDS ORDERED: Midazolam 2mg/2ml Inj IVP PRN (12:00)
[2016-07-05] MEDS ORDERED: Ketorolac 30mg Inj IV PRN (12:00)
[2016-07-05] MEDS ORDERED: Labetalol 5mg/ml 20ml vial IV PRN (12:00)
[2016-07-05] MEDS ORDERED: Norco 7.5mg/325mg tab ORAL PRN (12:00)
[2016-07-05] MEDS ORDERED: Atropine Inj 1mg/10ml Syr IV PRN (12:00)
[2016-07-05] MEDS ORDERED: Metoclopramide 10mg/2ml Inj IVP PRN (12:00)
[2016-07-05] MEDS ORDERED: Oxycodone/Acetaminophen 5-325 ORAL PRN (12:00)
[2016-07-05] MEDS ORDERED: LORazepam Inj 2mg/ml 1ml IV PRN (12:00)
--- NOTE | 2016-07-05 12:04 | Immediate Post-Op Evaluation ---
Immediate Post-Op Evalulation Immediate Post-Op Evalulation Procedure: I&D L Hip Abcess Date of Evaluation: Jul 05, 2016 Time of Evaluation: 12:13 IV Fluids: 900 LR Blood Products: 0 Estimated Blood Loss: 10 Urinary Output: 0 Blood Pressure Systolic: 182 Blood Pressure Diastolic: 84 Pulse Rate: 56 Respiratory Rate: 16 O2 Sat by Pulse Oximetry: 100 Temperature (Fahrenheit): 98.6 Pain Score (1-10): 2 Nausea: No Vomiting: No Complications 0 Patient Status: awake, reacts, patent, extubated, none Drug: Already Taking Ronald Oliver MD Jul 05, 2016 12:04
[2016-07-05] MEDS: fentaNYL 100 mcg/2 mL IV PRN ×2 (12:31→12:43)
--- NOTE | 2016-07-05 15:42 | Pulmonology Progress Note ---
Assessment/Plan Problems: (1) Cellulitis (2) IVDU (intravenous drug user) Assessment/Plan s/p I/D improivng iv antibioitcs check cultures surgery consult check wbc Subjective ROS Limited/Unobtainable: No Interval Events: I/D of the leg abscess Allergies: Coded Allergies: No Known Allergies (Unverified , 07/02/16) Objective Last 24 Hour Vital Signs Date Time Temp Pulse Resp B/P Pulse Ox O2 Delivery O2 Flow Rate FiO2 07/05/16 13:05 98.4 07/05/16 13:01 98.4 58 13 160/76 100 Nasal Cannula 3.0 07/05/16 13:00 98.4 07/05/16 12:55 59 14 176/85 100 Nasal Cannula 3.0 07/05/16 12:40 57 15 179/79 100 Nasal Cannula 3.0 07/05/16 12:30 63 22 199/92 100 Nasal Cannula 3.0 07/05/16 12:26 65 213/96 07/05/16 12:20 65 25 213/96 100 Simple Mask 6.0 07/05/16 12:19 202/97 07/05/16 12:15 62 18 202/97 100 Simple Mask 6.0 07/05/16 12:08 98.6 57 15 188/82 100 Simple Mask 6.0 07/05/16 12:04 56 16 100 07/05/16 08:00 98.1 58 16 154/77 100 Room Air 07/05/16 06:03 98.2 07/05/16 04:00 101.5 67 20 155/83 98 Room Air 07/05/16 01:27 162/96 07/05/16 00:00 99.0 61 20 162/96 98 Room Air 07/04/16 20:00 98.4 74 18 139/67 96 Room Air 07/04/16 16:00 99.0 80 16 146/70 93 Room Air Intake and Output 07/04/16 07/05/16 19:00 07:00 Intake Total 555 ml 415 ml Balance 555 ml 415 ml Intake Oral 500 ml 360 ml IV Total 55 ml 55 ml # Voids 2 4 General Appearance: WD/WN Respiratory/Chest: chest wall non-tender, normal breath sounds Cardiovascular: normal peripheral pulses, normal rate Abdomen: normal bowel sounds, soft, non tender Genitourinary: normal external genitalia Skin: no rash Microbiology Date/Time Source Procedure Growth Status 07/03/16 01:05 Blood Blood Culture - Preliminary NO GROWTH AFTER 48 HOURS Resulted 07/03/16 00:52 Blood Blood Culture - Preliminary NO GROWTH AFTER 48 HOURS Resulted Current Medications Medications (Trade) Dose Ordered Sig/Carrington Route PRN Reason Start Time Stop Time Status Last Admin Dose Admin Acetaminophen (Tylenol) 650 mg Q4H PRN ORAL T>100.5 07/03/16 07:15 08/02/16 07:14 07/05/16 05:04 Acetaminophen/ Hydrocodone Bitart ([place] 5/325) 1 tab Q1H PRN ORAL Mild Pain (Pain Scale 1-3) 07/05/16 12:00 07/05/16 18:00 Acetaminophen/ Hydrocodone Bitart ([place] 7.5/325) 1 ea Q1H PRN ORAL Moderate Pain (Pain Scale 4-6) 07/05/16 12:00 07/05/16 18:00 Al Hydroxide/Mg Hydroxide (Mylanta II) 30 ml Q6H PRN ORAL dyspepsia 07/03/16 07:15 08/02/16 07:14 Al Hydroxide/Mg Hydroxide (Mylanta) 15 ml Q1H PRN ORAL gi upset 07/05/16 12:00 07/05/16 18:00 Atropine Sulfate 0.5 mg 0.5 mg Q5M PRN IV HR <40 07/05/16 12:00 07/05/16 18:00 Cefepime HCl 1 gm/ Dextrose 55 ml @ 110 mls/hr Q12HR IV 07/03/16 09:00 07/10/16 08:59 07/05/16 08:30 Clonidine HCl (Catapres) 0.1 mg Q4H PRN ORAL SBP>160 07/03/16 11:30 08/02/16 11:29 07/05/16 01:27 Dextrose (Dextrose 50%) STAT PRN IV Hypoglycemia 07/03/16 07:15 08/02/16 07:14 Diphenhydramine HCl (Benadryl) 25 mg Q15M PRN IVP Itching 07/05/16 12:00 07/05/16 18:00 07/05/16 12:48 Heparin Sodium (Porcine) (Heparin 5000 units/ml) 5,000 units EVERY 12 HOURS SUBQ 07/04/16 21:00 08/03/16 20:59 Hydralazine HCl (Apresoline) 5 mg Q30M PRN IV SBP>160 / DBP>90 07/05/16 12:00 07/05/16 18:00 07/05/16 12:19 Hydromorphone HCl (Dilaudid) 0.5 mg Q15M PRN IVP Severe Pain (Pain Scale 7-10) 07/05/16 12:00 07/05/16 18:00 Ketorolac Tromethamine (Toradol 30mg) 15 mg Q1H PRN IV Moderate Breakthru Pain (5-7) 07/05/16 12:00 07/05/16 18:00 Ketorolac Tromethamine (Toradol) 60 mg Q1H PRN IV Severe Breakthru Pain (>7) 07/05/16 12:00 07/05/16 18:00 07/05/16 12:33 Labetalol HCl (Normodyne) 5 mg Q10M PRN IV SBP>160 / DBP>90 07/05/16 12:00 07/05/16 18:00 07/05/16 12:26 Lactated Ringer's (Lactated Ringer's 1000ml) 1,000 ml @ 10 mls/hr Q24H IVLG 07/05/16 12:00 07/05/16 18:00 Lorazepam (Ativan 2mg/ml 1ml) 0.5 mg Q4H PRN IV For Anxiety 07/03/16 07:15 07/10/16 07:14 Lorazepam (Ativan 2mg/ml 1ml) 1 mg Q15M PRN IV For Anxiety 07/05/16 12:00 07/05/16 18:00 Meperidine HCl (Demerol) 25 mg Q5M PRN IV Shivering. May repeat x 1 07/05/16 12:00 07/05/16 18:00 Methadone HCl (Methadone HCl) 55 mg DAILY ORAL 07/04/16 09:00 07/11/16 08:59 07/05/16 08:29 Metoclopramide HCl (Reglan) 10 mg Q1H PRN IVP Nausea & Vomiting 07/05/16 12:00 07/05/16 18:00 Midazolam HCl (Versed 2mg/2ml vial) 1 mg Q15M PRN IVP For Anxiety 07/05/16 12:00 07/05/16 18:00 Morphine Sulfate (Morphine Sulfate) 1 mg Q4H PRN IVP PAIN 4-10 07/03/16 07:15 07/10/16 07:14 07/05/16 01:27 Ondansetron HCl (Zofran) 4 mg Q1H PRN IVP Nausea & Vomiting 07/05/16 12:00 07/05/16 18:00 Ondansetron HCl (Zofran) 4 mg Q6H PRN IVP Nausea & Vomiting 07/03/16 07:15 08/02/16 07:14 Oxycodone/ Acetaminophen (Percocet 5-325) 1 tab Q1H PRN ORAL Severe Pain (Pain Scale 7-10) 07/05/16 12:00 07/05/16 18:00 Polyethylene Glycol (Miralax) 17 gm HSPRN PRN ORAL Constipation 07/03/16 21:00 08/02/16 20:59 Vancomycin HCl 1 ea 1 ea DAILY PRN MISC Per rx protocol 07/03/16 07:15 08/02/16 07:14 Vancomycin HCl/ Dextrose (Vancomycin/D5W) 275 ml @ 183.333 mls/hr Q12HR@0000,1200 IVPB 07/03/16 12:00 07/08/16 11:59 07/05/16 14:15 Zolpidem Tartrate (Ambien) 5 mg HSPRN PRN ORAL Insomnia 07/03/16 21:00 08/02/16 20:59 VINNIE HOSKINS Jul 05, 2016 15:42
--- NOTE | 2016-07-05 19:29 | Operative Note - Dictated ---
DATE OF OPERATION: 07/05/2016 PREOPERATIVE DIAGNOSIS: Abscess of the left hip area. POSTOPERATIVE DIAGNOSIS: Abscess of the left hip area. OPERATION: An incision and drainage of the abscess. COMPLICATION: None. SURGEON: Glenys Segura M.D. GEOLOGICAL SURVEY FIELD ASSISTANT: None. ANESTHESIA: General with laryngeal mask. ANESTHESIOLOGIST: Ronald Oliver M.D. INDICATION: This is a 61-year-old, male with a long history of drug abuse, who presented with pain and swelling at the left hip for few days. Apparently, he has had fever and chills the day before the admission. Physical examination showed an abscess at the left hip but the CBC was within normal limits. DESCRIPTION OF PROCEDURE: The patient was placed supine on the operating table and after general anesthesia, with the laryngeal mask, he was placed in the right decubitus position, and the left hip was properly prepped and draped. The area with the fluctuation was identified and the incision was given. The incision was carried sharply through the subcutaneous tissue, which entered into the large cavity and large amount of pus, which was under pressure was drained. In fact the pus was splashed out. All the pus was completely drained and suctioned out. The cavity was irrigated with antibiotic solution and then the cavity was unroofed with removing the skin and subcutaneous tissue. The bleeding points were controlled and then the cavity was packed with Betadine-soaked sponge. The patient tolerated the procedure very well and was transferred to recovery in stable condition and extubated. The sponge and needle count were correct. Estimated blood loss was 10 mL. Condition of the patient at the end of procedure was stable. Glenys Segura M.D. DR: LISA JOB#: [id number] CC:
[2016-07-06] VITALS: BP 172/84
[2016-07-06] MEDS: Vancomycin 1250mg/D5W 275ml IVPB SCH ×4 (00:17→12:43)
[2016-07-06 04:00] VITALS: BP 143/75
[2016-07-06 07:41] LABS: ALANINE AMINOTRANSFERASE 19 U/L (3-41); ALBUMIN/GLOBULIN RATIO 0.4 (1.0-2.7); ANION GAP 10 (5-15); ASPARTATE AMINO TRANSFERASE 45 U/L (5-40); CALCIUM 8.1 mg/dL (8.6-10.2); CARBON DIOXIDE 24 mEQ/L (20-30); CHLORIDE 103 mEQ/L (98-107); CREATININE 0.9 mg/dL (0.7-1.2); GLOMERULAR FILTRATION RATE > 60 mL/min (>60); HEMOLYSIS 1; PHOSPHORUS 3.2 mg/dL (2.5-4.8); POTASSIUM 4.1 mEQ/L (3.4-4.9); SODIUM 137 mEQ/L (135-145); TOTAL PROTEIN 6.5 g/dL (6.6-8.7)
[2016-07-06 07:47] LABS: MEAN CORPUSCULAR HEMOGLOBIN 27.9 PG (27.0-31.0); MEAN CORPUSCULAR HGB CONC 32.6 G/DL (32.0-36.0); MEAN CORPUSCULAR VOLUME 86 FL (80-99); MEAN PLATELET VOLUME 7.9 FL (6.5-10.1); PLATELET COUNT 150 K/UL (150-450); RED CELL DISTRIBUTION WIDTH 13.9 % (11.6-14.8); WHITE BLOOD COUNT 3.4 K/UL (4.8-10.8)
[2016-07-06 07:58] VITALS: BP 150/83
[2016-07-06] MEDS: Cefepime HCl 1 GM in D5W 55 ML IV SCH ×2 (09:45→21:24)
[2016-07-06] MEDS: Heparin 5000 units/ml inj SUBQ SCH ×2 (09:48→20:09)
[2016-07-06 10:51] LABS: BAND NEUTROPHILS % (MANUAL) 0 % (0-8); BASOPHILS % (MANUAL) 0 % (0-2); EOSINOPHILS % (MANUAL) 1 % (0-3); LYMPHOCYTES % (MANUAL) 24 % (20-45); NEUTROPHILS % (MANUAL) 62 % (45-75); PLATELET ESTIMATE ADEQUATE; PLATELET MORPHOLOGY NORMAL; TOTAL CELLS COUNTED 100
[2016-07-06 12:15] VITALS: BP 146/78
--- NOTE | 2016-07-06 12:24 | Internal Med Progress Note ---
Subjective Date of Service: Jul 06, 2016 Physician Name Jc Ordaz Attending Physician Alok Julian MD Current Medications Medications (Trade) Dose Ordered Sig/Carrington Route PRN Reason Start Time Stop Time Status Last Admin Dose Admin Acetaminophen (Tylenol) 650 mg Q4H PRN ORAL T>100.5 07/03/16 07:15 08/02/16 07:14 07/05/16 05:04 Al Hydroxide/Mg Hydroxide (Mylanta II) 30 ml Q6H PRN ORAL dyspepsia 07/03/16 07:15 08/02/16 07:14 07/06/16 00:15 Cefepime HCl 1 gm/ Dextrose 55 ml @ 110 mls/hr Q12HR IV 07/03/16 09:00 07/10/16 08:59 07/06/16 09:45 Clonidine HCl (Catapres) 0.1 mg Q4H PRN ORAL SBP>160 07/03/16 11:30 08/02/16 11:29 07/06/16 00:35 Dextrose (Dextrose 50%) STAT PRN IV Hypoglycemia 07/03/16 07:15 08/02/16 07:14 Heparin Sodium (Porcine) (Heparin 5000 units/ml) 5,000 units EVERY 12 HOURS SUBQ 07/04/16 21:00 08/03/16 20:59 Lorazepam (Ativan 2mg/ml 1ml) 0.5 mg Q4H PRN IV For Anxiety 07/03/16 07:15 07/10/16 07:14 Methadone HCl (Methadone HCl) 5 mg DAILY ORAL 07/07/16 09:00 07/14/16 08:59 Methadone HCl (Methadone HCl) 50 mg DAILY ORAL 07/07/16 09:00 07/14/16 08:59 Morphine Sulfate (Morphine Sulfate) 1 mg Q4H PRN IVP PAIN 4-10 07/03/16 07:15 07/10/16 07:14 07/05/16 01:27 Ondansetron HCl (Zofran) 4 mg Q6H PRN IVP Nausea & Vomiting 07/03/16 07:15 08/02/16 07:14 Polyethylene Glycol (Miralax) 17 gm HSPRN PRN ORAL Constipation 07/03/16 21:00 08/02/16 20:59 Vancomycin HCl 1 ea 1 ea DAILY PRN MISC Per rx protocol 07/03/16 07:15 08/02/16 07:14 Vancomycin HCl/ Dextrose (Vancomycin/D5W) 275 ml @ 183.333 mls/hr Q12HR@0000,1200 IVPB 07/03/16 12:00 07/08/16 11:59 07/06/16 00:17 Zolpidem Tartrate (Ambien) 5 mg HSPRN PRN ORAL Insomnia 07/03/16 21:00 08/02/16 20:59 Allergies: Coded Allergies: No Known Allergies (Unverified , 07/02/16) ROS Limited/Unobtainable: No Constitutional: Reports: no symptoms HEENT: Reports: no symptoms Cardiovascular: Reports: no symptoms Respiratory: Reports: no symptoms Gastrointestinal/Abdominal: Reports: no symptoms Genitourinary: Reports: no symptoms Neurologic/Psychiatric: Reports: other - left hip pain Subjective 61 YO M admitted with left hip abscess. Cover for Int Med Dr Julian. S/P Incision and drainage 07/05/16 Objective Last Vital Signs Date Time Temp Pulse Resp B/P Pulse Ox O2 Delivery O2 Flow Rate FiO2 07/06/16 12:15 98.3 57 19 146/78 99 Room Air 07/05/16 13:01 3.0 Laboratory Tests Test 07/06/16 06:50 White Blood Count 3.4 K/UL (4.8-10.8) L Red Blood Count 4.50 M/UL (4.70-6.10) L Hemoglobin 12.6 G/DL (14.2-18.0) L Hematocrit 38.5 % (42.0-52.0) L Mean Corpuscular Volume 86 FL (80-99) Mean Corpuscular Hemoglobin 27.9 PG (27.0-31.0) Mean Corpuscular Hemoglobin Concent 32.6 G/DL (32.0-36.0) Red Cell Distribution Width 13.9 % (11.6-14.8) Platelet Count 150 K/UL (150-450) Mean Platelet Volume 7.9 FL (6.5-10.1) Neutrophils (%) (Auto) % (45.0-75.0) Lymphocytes (%) (Auto) % (20.0-45.0) Monocytes (%) (Auto) % (1.0-10.0) Eosinophils (%) (Auto) % (0.0-3.0) Basophils (%) (Auto) % (0.0-2.0) Differential Total Cells Counted 100 Neutrophils % (Manual) 62 % (45-75) Lymphocytes % (Manual) 24 % (20-45) Monocytes % (Manual) 13 % (1-10) H Eosinophils % (Manual) 1 % (0-3) Basophils % (Manual) 0 % (0-2) Band Neutrophils 0 % (0-8) Platelet Estimate Adequate Platelet Morphology Normal Red Blood Cell Morphology Normal Sodium Level 137 mEQ/L (135-145) Potassium Level 4.1 mEQ/L (3.4-4.9) Chloride Level 103 mEQ/L (98-107) Carbon Dioxide Level 24 mEQ/L (20-30) Anion Gap 10 (5-15) Blood Urea Nitrogen 16 mg/dL (7-23) Creatinine 0.9 mg/dL (0.7-1.2) Estimat Glomerular Filtration Rate > 60 mL/min (>60) Glucose Level 119 mg/dL (74-106) H Calcium Level 8.1 mg/dL (8.6-10.2) L Phosphorus Level 3.2 mg/dL (2.5-4.8) Magnesium Level 2.0 mg/dL (1.7-2.5) Total Bilirubin 0.6 mg/dL (0.0-1.2) Aspartate Amino Transf (AST/SGOT) 45 U/L (5-40) H Alanine Aminotransferase (ALT/SGPT) 19 U/L (3-41) Alkaline Phosphatase 73 U/L (40-129) Total Protein 6.5 g/dL (6.6-8.7) L Albumin 2.1 g/dL (3.5-5.2) L Globulin 4.4 g/dL Albumin/Globulin Ratio 0.4 (1.0-2.7) L Microbiology Date/Time Source Procedure Growth Status 07/05/16 12:00 Hip Left Gram Stain - Final Resulted 07/05/16 12:00 Hip Left Aerobic Culture - Preliminary NO GROWTH Resulted 07/05/16 12:00 Hip Left Anaerobic Culture Pending Resulted Intake and Output 07/05/16 07/06/16 19:00 07:00 Intake Total 580 ml 1075 ml Output Total 20 ml Balance 560 ml 1075 ml Intake Oral 1020 ml IV Total 580 ml 55 ml Estimated Blood Loss 20 ml # Voids 4 Objective Objective GENERAL: No apparent distress. Nontoxic appearing. HEAD: PERRLA, EOMI NECK: Supply, No JVD CARDIOVASCULAR: Regular rate and rhythm. No murmurs. PULMONARY: Clear to auscultation bilaterally. ABDOMEN: Bowel sounds present. Soft, nondistended, and nontender. EXTREMITIES: Left hip tenderness, fluctuance, and warmth. No edema Assessment/Plan Status: progressing Assessment/Plan Assessment/Plan ASSESSMENT: 1. Left thigh cellulitis / abscess after skin-popping. 2. Afebrile without leukocytosis. 3. Elevated liver function tests, rule out hepatitis.history of hepatitis C, status post treatment. 4. Thrombocytopenia. 5. Intravenous drug abuse. 6. Hypertension. PLAN: 1. Continue empiric IV vancomycin and cefepime day #4. 2. No known drug allergies. 3. Follow up cultures. 4. Full Code. 5. Monitor Labs 6. See Surgery consult. S/P I&D abscess 07/05/16 JC ORDAZ Jul 06, 2016 12:24
--- NOTE | 2016-07-06 12:28 | Cardiology Report ---
APPROVED REPORT EKG Measurement Heart [id number] Normal sinus rhythm Right bundle branch block Minimal voltage criteria for LVH, may be normal variant Septal infarct, age undetermined Abnormal ECG
--- NOTE | 2016-07-06 14:15 | 48 Hour Post Anesthesia Eval ---
Post Anesthesia Evaluation Procedure: I&D L Hip Abcess Date of Evaluation: Jul 06, 2016 Time of Evaluation: 14:14 Blood Pressure Systolic: 146 0: 98 Pulse Rate: 57 Respiratory Rate: 18 Temperature (Fahrenheit): 98.3 O2 Sat by Pulse Oximetry: 99 Airway: patent Nausea: No Vomiting: No Pain Intensity: 2 Hydration Status: adequate Cardiopulmonary Status: Stable Mental Status/LOC: patient returned to baseline Follow-up Care/Observations: 0 Post-Anesthesia Complications: 0 Follow-up care needed: N/A Ronald Oliver MD Jul 06, 2016 14:15
[2016-07-06 16:00] VITALS: BP 135/87
--- NOTE | 2016-07-06 16:12 | Infectious Diseases Prog Note ---
Assessment/Plan Assessment/Plan ASSESSMENT: 61 y/o male with: // Left thigh cellulitis / abscess after skin popping - SP I&D 07/05 - WCx pending - US: Approximately 7 x 4 x 5 cm complex irregular apparent fluid collection of the left hip soft tissues. - CT: soft tissue cellulitis. No definite walled off collection to suggest abscess is demonstrated. However, exam is somewhat limited // Negative HIV // Fever x1 - resolved, no leukocytosis // Elevated LFTs, mild - h/o HCV SP Rx // Thrombocytopenia // IVDA ( heroin ) // NKDA // Full Code PLAN: - continue empiric IV vancomycin, cefepime d# . Ok to complete course with PO bactrim at discharge - hepatitis panel - f/u cultures - monitor CBC, temperatures - monitor BMP Subjective Allergies: Coded Allergies: No Known Allergies (Unverified , 07/02/16) Subjective remains afebrile. no new complaint Objective Vital Signs Last 24 Hour Vital Signs Date Time Temp Pulse Resp B/P Pulse Ox O2 Delivery O2 Flow Rate FiO2 07/06/16 16:00 98.8 50 20 135/87 100 Room Air 07/06/16 14:15 57 18 99 07/06/16 12:15 98.3 57 19 146/78 99 Room Air 07/06/16 07:58 97.7 59 20 150/83 97 Room Air 07/06/16 04:00 98.1 53 20 143/75 94 Room Air 07/06/16 00:35 172/84 07/06/16 00:00 97.0 64 18 172/84 Room Air 07/05/16 20:00 97.6 58 16 136/69 100 Room Air Height (Feet): 5 Height (Inches): 10.00 Weight (Pounds): 160 General Appearance: no acute distress Respiratory/Chest: no respiratory distress Cardiovascular: normal rate, regular rhythm Abdomen: normal bowel sounds, soft, non tender, non distended Microbiology Date/Time Source Procedure Growth Status 07/05/16 12:00 Hip Left Gram Stain - Final Resulted 07/05/16 12:00 Hip Left Aerobic Culture - Preliminary NO GROWTH Resulted 07/05/16 12:00 Hip Left Anaerobic Culture Pending Resulted Laboratory Tests Test 07/06/16 06:50 White Blood Count 3.4 K/UL (4.8-10.8) L Red Blood Count 4.50 M/UL (4.70-6.10) L Hemoglobin 12.6 G/DL (14.2-18.0) L Hematocrit 38.5 % (42.0-52.0) L Mean Corpuscular Volume 86 FL (80-99) Mean Corpuscular Hemoglobin 27.9 PG (27.0-31.0) Mean Corpuscular Hemoglobin Concent 32.6 G/DL (32.0-36.0) Red Cell Distribution Width 13.9 % (11.6-14.8) Platelet Count 150 K/UL (150-450) Mean Platelet Volume 7.9 FL (6.5-10.1) Neutrophils (%) (Auto) % (45.0-75.0) Lymphocytes (%) (Auto) % (20.0-45.0) Monocytes (%) (Auto) % (1.0-10.0) Eosinophils (%) (Auto) % (0.0-3.0) Basophils (%) (Auto) % (0.0-2.0) Differential Total Cells Counted 100 Neutrophils % (Manual) 62 % (45-75) Lymphocytes % (Manual) 24 % (20-45) Monocytes % (Manual) 13 % (1-10) H Eosinophils % (Manual) 1 % (0-3) Basophils % (Manual) 0 % (0-2) Band Neutrophils 0 % (0-8) Platelet Estimate Adequate Platelet Morphology Normal Red Blood Cell Morphology Normal Sodium Level 137 mEQ/L (135-145) Potassium Level 4.1 mEQ/L (3.4-4.9) Chloride Level 103 mEQ/L (98-107) Carbon Dioxide Level 24 mEQ/L (20-30) Anion Gap 10 (5-15) Blood Urea Nitrogen 16 mg/dL (7-23) Creatinine 0.9 mg/dL (0.7-1.2) Estimat Glomerular Filtration Rate > 60 mL/min (>60) Glucose Level 119 mg/dL (74-106) H Calcium Level 8.1 mg/dL (8.6-10.2) L Phosphorus Level 3.2 mg/dL (2.5-4.8) Magnesium Level 2.0 mg/dL (1.7-2.5) Total Bilirubin 0.6 mg/dL (0.0-1.2) Aspartate Amino Transf (AST/SGOT) 45 U/L (5-40) H Alanine Aminotransferase (ALT/SGPT) 19 U/L (3-41) Alkaline Phosphatase 73 U/L (40-129) Total Protein 6.5 g/dL (6.6-8.7) L Albumin 2.1 g/dL (3.5-5.2) L Globulin 4.4 g/dL Albumin/Globulin Ratio 0.4 (1.0-2.7) L Current Medications Medications (Trade) Dose Ordered Sig/Carrington Route PRN Reason Start Time Stop Time Status Last Admin Dose Admin Acetaminophen (Tylenol) 650 mg Q4H PRN ORAL T>100.5 07/03/16 07:15 08/02/16 07:14 07/05/16 05:04 Al Hydroxide/Mg Hydroxide (Mylanta II) 30 ml Q6H PRN ORAL dyspepsia 07/03/16 07:15 08/02/16 07:14 07/06/16 00:15 Cefepime HCl 1 gm/ Dextrose 55 ml @ 110 mls/hr Q12HR IV 07/03/16 09:00 07/10/16 08:59 07/06/16 09:45 Clonidine HCl (Catapres) 0.1 mg Q4H PRN ORAL SBP>160 07/03/16 11:30 08/02/16 11:29 07/06/16 00:35 Dextrose (Dextrose 50%) STAT PRN IV Hypoglycemia 07/03/16 07:15 08/02/16 07:14 Heparin Sodium (Porcine) (Heparin 5000 units/ml) 5,000 units EVERY 12 HOURS SUBQ 07/04/16 21:00 08/03/16 20:59 Lorazepam (Ativan 2mg/ml 1ml) 0.5 mg Q4H PRN IV For Anxiety 07/03/16 07:15 07/10/16 07:14 Methadone HCl (Methadone HCl) 5 mg DAILY ORAL 07/07/16 09:00 07/14/16 08:59 Methadone HCl (Methadone HCl) 50 mg DAILY ORAL 07/07/16 09:00 07/14/16 08:59 Morphine Sulfate (Morphine Sulfate) 1 mg Q4H PRN IVP PAIN 4-10 07/03/16 07:15 07/10/16 07:14 07/05/16 01:27 Ondansetron HCl (Zofran) 4 mg Q6H PRN IVP Nausea & Vomiting 07/03/16 07:15 08/02/16 07:14 Polyethylene Glycol (Miralax) 17 gm HSPRN PRN ORAL Constipation 07/03/16 21:00 08/02/16 20:59 Vancomycin HCl 1 ea 1 ea DAILY PRN MISC Per rx protocol 07/03/16 07:15 08/02/16 07:14 Vancomycin HCl/ Dextrose (Vancomycin/D5W) 275 ml @ 183.333 mls/hr Q12HR@0000,1200 IVPB 07/03/16 12:00 07/08/16 11:59 07/06/16 12:43 Zolpidem Tartrate (Ambien) 5 mg HSPRN PRN ORAL Insomnia 07/03/16 21:00 08/02/16 20:59 YORDAN ALVARADO Jul 06, 2016 16:12
--- NOTE | 2016-07-06 17:29 | Pulmonology Progress Note ---
Assessment/Plan Problems: (1) Cellulitis (2) IVDU (intravenous drug user) Assessment/Plan s/p I/D improivng iv antibioitcs check cultures surgery consult check wbc Subjective ROS Limited/Unobtainable: No Allergies: Coded Allergies: No Known Allergies (Unverified , 07/02/16) Objective Last 24 Hour Vital Signs Date Time Temp Pulse Resp B/P Pulse Ox O2 Delivery O2 Flow Rate FiO2 07/06/16 16:00 98.8 50 20 135/87 100 Room Air 07/06/16 14:15 57 18 99 07/06/16 12:15 98.3 57 19 146/78 99 Room Air 07/06/16 07:58 97.7 59 20 150/83 97 Room Air 07/06/16 04:00 98.1 53 20 143/75 94 Room Air 07/06/16 00:35 172/84 07/06/16 00:00 97.0 64 18 172/84 Room Air 07/05/16 20:00 97.6 58 16 136/69 100 Room Air Intake and Output 07/05/16 07/06/16 19:00 07:00 Intake Total 580 ml 1075 ml Output Total 20 ml Balance 560 ml 1075 ml Intake Oral 1020 ml IV Total 580 ml 55 ml Estimated Blood Loss 20 ml # Voids 4 Objective General Appearance: WD/WN Lines, tubes and drains: peripheral, HEENT: normocephalic, anicteric Neck: non-tender, supple Respiratory/Chest: chest wall non-tender, lungs clear Cardiovascular/Chest: normal peripheral pulses, regular rhythm Abdomen: normal bowel sounds, non tender Genitourinary/Rectal: normal genital exam, normal rectal exam Microbiology Date/Time Source Procedure Growth Status 07/05/16 12:00 Hip Left Gram Stain - Final Resulted 07/05/16 12:00 Hip Left Aerobic Culture - Preliminary NO GROWTH Resulted 07/05/16 12:00 Hip Left Anaerobic Culture Pending Resulted Laboratory Tests 07/06/16 06:50: White Blood Count 3.4L, Red Blood Count 4.50L, Hemoglobin 12.6L, Hematocrit 38.5L, Mean Corpuscular Volume 86, Mean Corpuscular Hemoglobin 27.9, Mean Corpuscular Hemoglobin Concent 32.6, Red Cell Distribution Width 13.9, Platelet Count 150, Mean Platelet Volume 7.9, Neutrophils (%) (Auto) , Lymphocytes (%) ( Auto) , Monocytes (%) (Auto) , Eosinophils (%) (Auto) , Basophils (%) (Auto) , Differential Total Cells Counted 100, Neutrophils % (Manual) 62, Lymphocytes % ( Manual) 24, Monocytes % (Manual) 13H, Eosinophils % (Manual) 1, Basophils % ( Manual) 0, Band Neutrophils 0, Platelet Estimate Adequate, Platelet Morphology Normal, Red Blood Cell Morphology Normal, Sodium Level 137, Potassium Level 4.1 , Chloride Level 103, Carbon Dioxide Level 24, Anion Gap 10, Blood Urea Nitrogen 16, Creatinine 0.9, Estimat Glomerular Filtration Rate > 60, Glucose Level 119H, Calcium Level 8.1L, Phosphorus Level 3.2, Magnesium Level 2.0, Total Bilirubin 0.6, Aspartate Amino Transf (AST/SGOT) 45H, Alanine Aminotransferase (ALT/SGPT) 19, Alkaline Phosphatase 73, Total Protein 6.5L, Albumin 2.1L, Globulin 4.4, Albumin/Globulin Ratio 0.4L Current Medications Medications (Trade) Dose Ordered Sig/Carrington Route PRN Reason Start Time Stop Time Status Last Admin Dose Admin Acetaminophen (Tylenol) 650 mg Q4H PRN ORAL T>100.5 07/03/16 07:15 08/02/16 07:14 07/05/16 05:04 Al Hydroxide/Mg Hydroxide (Mylanta II) 30 ml Q6H PRN ORAL dyspepsia 07/03/16 07:15 08/02/16 07:14 07/06/16 00:15 Cefepime HCl 1 gm/ Dextrose 55 ml @ 110 mls/hr Q12HR IV 07/03/16 09:00 07/10/16 08:59 07/06/16 09:45 Clonidine HCl (Catapres) 0.1 mg Q4H PRN ORAL SBP>160 07/03/16 11:30 08/02/16 11:29 07/06/16 00:35 Dextrose (Dextrose 50%) STAT PRN IV Hypoglycemia 07/03/16 07:15 08/02/16 07:14 Heparin Sodium (Porcine) (Heparin 5000 units/ml) 5,000 units EVERY 12 HOURS SUBQ 07/04/16 21:00 08/03/16 20:59 Lorazepam (Ativan 2mg/ml 1ml) 0.5 mg Q4H PRN IV For Anxiety 07/03/16 07:15 07/10/16 07:14 Methadone HCl (Methadone HCl) 5 mg DAILY ORAL 07/07/16 09:00 07/14/16 08:59 Methadone HCl (Methadone HCl) 50 mg DAILY ORAL 07/07/16 09:00 07/14/16 08:59 Morphine Sulfate (Morphine Sulfate) 1 mg Q4H PRN IVP PAIN 4-10 07/03/16 07:15 07/10/16 07:14 07/05/16 01:27 Ondansetron HCl (Zofran) 4 mg Q6H PRN IVP Nausea & Vomiting 07/03/16 07:15 08/02/16 07:14 Polyethylene Glycol (Miralax) 17 gm HSPRN PRN ORAL Constipation 07/03/16 21:00 08/02/16 20:59 Vancomycin HCl 1 ea 1 ea DAILY PRN MISC Per rx protocol 07/03/16 07:15 08/02/16 07:14 Vancomycin HCl/ Dextrose (Vancomycin/D5W) 275 ml @ 183.333 mls/hr Q12HR@0000,1200 IVPB 07/03/16 12:00 07/08/16 11:59 07/06/16 12:43 Zolpidem Tartrate (Ambien) 5 mg HSPRN PRN ORAL Insomnia 07/03/16 21:00 08/02/16 20:59 VINNIE HOSKINS Jul 06, 2016 17:29
[2016-07-06 19:00] VITALS: BP 132/74
[2016-07-06] MEDS: Morphine Sulfate 2mg/ml Inj IVP PRN (21:24)
[2016-07-07] VITALS (7 sets, daily range): BP systolic 119–154; BP diastolic 61–92
[2016-07-07] MEDS: Vancomycin 1250mg/D5W 275ml IVPB SCH ×4 (01:47→12:39)
[2016-07-07] MEDS: Heparin 5000 units/ml inj SUBQ SCH ×2 (09:00→20:40)
[2016-07-07] MEDS: Cefepime HCl 1 GM in D5W 55 ML IV SCH ×2 (09:38→20:38)
--- NOTE | 2016-07-07 13:48 | Infectious Diseases Prog Note ---
Assessment/Plan Assessment/Plan ASSESSMENT: 61 y/o male with: // Left thigh cellulitis / abscess after skin popping - SP I&D 07/05 - WCx skin justyna - US: Approximately 7 x 4 x 5 cm complex irregular apparent fluid collection of the left hip soft tissues. - CT: soft tissue cellulitis. No definite walled off collection to suggest abscess is demonstrated. However, exam is somewhat limited // Negative HIV // Fever x1 - resolved, no leukocytosis // Elevated LFTs, mild - h/o HCV SP Rx // Thrombocytopenia // IVDA ( heroin ) // NKDA // Full Code PLAN: - continue empiric IV vancomycin, cefepime d# . Ok to complete course with PO bactrim at discharge - f/u final cultures - monitor CBC, temperatures - monitor BMP - wound care Subjective Allergies: Coded Allergies: No Known Allergies (Unverified , 07/02/16) Subjective remains afebrile. no new complaint Objective Vital Signs Last 24 Hour Vital Signs Date Time Temp Pulse Resp B/P Pulse Ox O2 Delivery O2 Flow Rate FiO2 07/07/16 12:14 98.3 60 20 154/92 97 Room Air 07/07/16 08:15 97.9 68 20 152/82 99 Room Air 07/07/16 04:00 97.9 61 20 119/61 100 Room Air 07/07/16 02:00 97.9 61 18 119/61 100 Room Air 07/07/16 00:00 98.1 58 18 142/76 100 Room Air 07/06/16 21:54 97.7 07/06/16 19:00 97.7 60 20 132/74 94 Room Air 07/06/16 16:00 98.8 50 20 135/87 100 Room Air 07/06/16 14:15 57 18 99 Height (Feet): 5 Height (Inches): 10.00 Weight (Pounds): 160 General Appearance: no acute distress Respiratory/Chest: no respiratory distress Cardiovascular: normal rate, regular rhythm Abdomen: normal bowel sounds, soft, non tender, non distended Microbiology Date/Time Source Procedure Growth Status 07/05/16 09:00 Blood Blood Culture - Preliminary NO GROWTH AFTER 24 HOURS Resulted 07/05/16 08:45 Blood Blood Culture - Preliminary NO GROWTH AFTER 24 HOURS Resulted 07/05/16 12:00 Hip Left Gram Stain - Final Resulted 07/05/16 12:00 Aerobic Culture - Preliminary Usual Skin Justyna Resulted 07/05/16 12:00 Hip Left Anaerobic Culture Pending Resulted Current Medications Medications (Trade) Dose Ordered Sig/[place] Route PRN Reason Start Time Stop Time Status Last Admin Dose Admin Acetaminophen (Tylenol) 650 mg Q4H PRN ORAL T>100.5 07/03/16 07:15 08/02/16 07:14 07/05/16 05:04 Al Hydroxide/Mg Hydroxide (Mylanta II) 30 ml Q6H PRN ORAL dyspepsia 07/03/16 07:15 08/02/16 07:14 07/06/16 00:15 Cefepime HCl 1 gm/ Dextrose 55 ml @ 110 mls/hr Q12HR IV 07/03/16 09:00 07/10/16 08:59 07/07/16 09:38 Clonidine HCl (Catapres) 0.1 mg Q4H PRN ORAL SBP>160 07/03/16 11:30 08/02/16 11:29 07/06/16 00:35 Dextrose (Dextrose 50%) STAT PRN IV Hypoglycemia 07/03/16 07:15 08/02/16 07:14 Heparin Sodium (Porcine) (Heparin 5000 units/ml) 5,000 units EVERY 12 HOURS SUBQ 07/04/16 21:00 08/03/16 20:59 Lorazepam (Ativan 2mg/ml 1ml) 0.5 mg Q4H PRN IV For Anxiety 07/03/16 07:15 07/10/16 07:14 Methadone HCl (Methadone HCl) 5 mg DAILY ORAL 07/07/16 09:00 07/14/16 08:59 07/07/16 09:40 Methadone HCl (Methadone HCl) 50 mg DAILY ORAL 07/07/16 09:00 07/14/16 08:59 07/07/16 09:40 Morphine Sulfate (Morphine Sulfate) 1 mg Q4H PRN IVP PAIN 4-10 07/03/16 07:15 07/10/16 07:14 07/06/16 21:24 Ondansetron HCl (Zofran) 4 mg Q6H PRN IVP Nausea & Vomiting 07/03/16 07:15 08/02/16 07:14 Polyethylene Glycol (Miralax) 17 gm HSPRN PRN ORAL Constipation 07/03/16 21:00 08/02/16 20:59 Vancomycin HCl 1 ea 1 ea DAILY PRN MISC Per rx protocol 07/03/16 07:15 08/02/16 07:14 Vancomycin HCl/ Dextrose (Vancomycin/D5W) 275 ml @ 183.333 mls/hr Q12HR@0000,1200 IVPB 07/03/16 12:00 07/10/16 11:59 07/07/16 12:39 Zolpidem Tartrate (Ambien) 5 mg HSPRN PRN ORAL Insomnia 07/03/16 21:00 08/02/16 20:59 YORDAN ALVARADO Jul 07, 2016 13:48
--- NOTE | 2016-07-07 14:53 | General Surgery Progress Note ---
General Surgery-Progress Note Subjective Procedure Performed I&D of abscess of left hip Symptoms: improved Objective Last 24 Hour Vital Signs Date Time Temp Pulse Resp B/P Pulse Ox O2 Delivery O2 Flow Rate FiO2 07/07/16 12:14 98.3 60 20 154/92 97 Room Air 07/07/16 08:15 97.9 68 20 152/82 99 Room Air 07/07/16 04:00 97.9 61 20 119/61 100 Room Air 07/07/16 02:00 97.9 61 18 119/61 100 Room Air 07/07/16 00:00 98.1 58 18 142/76 100 Room Air 07/06/16 21:54 97.7 07/06/16 19:00 97.7 60 20 132/74 94 Room Air 07/06/16 16:00 98.8 50 20 135/87 100 Room Air I&O Intake and Output 07/06/16 07/07/16 19:00 07:00 Intake Total 720 ml 375 ml Output Total 850 ml Balance 720 ml -475 ml Intake Oral 720 ml 320 ml IV Total 55 ml Output Urine Total 850 ml # Voids 2 5 # Bowel Movements 1 1 Extremities: other - cavity open no drainage no erythema Assessment Additional Comments S/P I&D of abscess left hip Plan Additional Comments continue packing DAHIANA TEIXEIRA Jul 07, 2016 14:53
[2016-07-07] MEDS: Morphine Sulfate 2mg/ml Inj IVP PRN (15:52)
--- NOTE | 2016-07-07 17:14 | Internal Med Progress Note ---
Subjective Date of Service: Jul 07, 2016 Physician Name Tash Ordaz Attending Physician Alok Julian MD Current Medications Medications (Trade) Dose Ordered Sig/Carrington Route PRN Reason Start Time Stop Time Status Last Admin Dose Admin Acetaminophen (Tylenol) 650 mg Q4H PRN ORAL T>100.5 07/03/16 07:15 08/02/16 07:14 07/05/16 05:04 Al Hydroxide/Mg Hydroxide (Mylanta II) 30 ml Q6H PRN ORAL dyspepsia 07/03/16 07:15 08/02/16 07:14 07/06/16 00:15 Cefepime HCl 1 gm/ Dextrose 55 ml @ 110 mls/hr Q12HR IV 07/03/16 09:00 07/10/16 08:59 07/07/16 09:38 Clonidine HCl (Catapres) 0.1 mg Q4H PRN ORAL SBP>160 07/03/16 11:30 08/02/16 11:29 07/06/16 00:35 Dextrose (Dextrose 50%) STAT PRN IV Hypoglycemia 07/03/16 07:15 08/02/16 07:14 Heparin Sodium (Porcine) (Heparin 5000 units/ml) 5,000 units EVERY 12 HOURS SUBQ 07/04/16 21:00 08/03/16 20:59 Lorazepam (Ativan 2mg/ml 1ml) 0.5 mg Q4H PRN IV For Anxiety 07/03/16 07:15 07/10/16 07:14 Methadone HCl (Methadone HCl) 5 mg DAILY ORAL 07/07/16 09:00 07/14/16 08:59 07/07/16 09:40 Methadone HCl (Methadone HCl) 50 mg DAILY ORAL 07/07/16 09:00 07/14/16 08:59 07/07/16 09:40 Morphine Sulfate (Morphine Sulfate) 1 mg Q4H PRN IVP PAIN 4-10 07/03/16 07:15 07/10/16 07:14 07/07/16 15:52 Ondansetron HCl (Zofran) 4 mg Q6H PRN IVP Nausea & Vomiting 07/03/16 07:15 08/02/16 07:14 Polyethylene Glycol (Miralax) 17 gm HSPRN PRN ORAL Constipation 07/03/16 21:00 08/02/16 20:59 Vancomycin HCl 1 ea 1 ea DAILY PRN MISC Per rx protocol 07/03/16 07:15 08/02/16 07:14 Vancomycin HCl/ Dextrose (Vancomycin/D5W) 275 ml @ 183.333 mls/hr Q12HR@0000,1200 IVPB 07/03/16 12:00 07/10/16 11:59 07/07/16 12:39 Zolpidem Tartrate (Ambien) 5 mg HSPRN PRN ORAL Insomnia 07/03/16 21:00 08/02/16 20:59 Allergies: Coded Allergies: No Known Allergies (Unverified , 07/02/16) ROS Limited/Unobtainable: No Constitutional: Reports: no symptoms HEENT: Reports: no symptoms Cardiovascular: Reports: no symptoms Respiratory: Reports: no symptoms Gastrointestinal/Abdominal: Reports: no symptoms Genitourinary: Reports: no symptoms Neurologic/Psychiatric: Reports: no symptoms Subjective 61 YO M admitted with left hip abscess. Cover for Int Med Dr Julian. S/P Incision and drainage 07/05/16 C/O hip pain Objective Last Vital Signs Date Time Temp Pulse Resp B/P Pulse Ox O2 Delivery O2 Flow Rate FiO2 07/07/16 16:00 97.7 62 18 153/74 Room Air 07/07/16 12:14 97 07/05/16 13:01 3.0 General Appearance: WD/WN, no apparent distress, alert EENT: PERRL/EOMI, normal ENT inspection, TMs normal Neck: non-tender, normal alignment, supple, normal inspection Cardiovascular: normal peripheral pulses, normal rate, regular rhythm, no gallop/murmur, no JVD Respiratory/Chest: chest wall non-tender, lungs clear, normal breath sounds, no respiratory distress, no accessory muscle use Abdomen: normal bowel sounds, non tender, soft, no organomegaly, no mass Extremities: normal range of motion 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, no motor/sensory deficits Skin: normal pigmentation, warm/dry Microbiology Date/Time Source Procedure Growth Status 07/05/16 09:00 Blood Blood Culture - Preliminary NO GROWTH AFTER 24 HOURS Resulted 07/05/16 08:45 Blood Blood Culture - Preliminary NO GROWTH AFTER 24 HOURS Resulted 07/05/16 12:00 Hip Left Gram Stain - Final Resulted 07/05/16 12:00 Aerobic Culture - Preliminary Usual Skin Lizzeth Resulted 07/05/16 12:00 Hip Left Anaerobic Culture Pending Resulted Intake and Output 07/06/16 07/07/16 19:00 07:00 Intake Total 720 ml 375 ml Output Total 850 ml Balance 720 ml -475 ml Intake Oral 720 ml 320 ml IV Total 55 ml Output Urine Total 850 ml # Voids 2 5 # Bowel Movements 1 1 Objective Objective GENERAL: No apparent distress. Nontoxic appearing. HEAD: PERRLA, EOMI NECK: Supply, No JVD CARDIOVASCULAR: Regular rate and rhythm. No murmurs. PULMONARY: Clear to auscultation bilaterally. ABDOMEN: Bowel sounds present. Soft, nondistended, and nontender. EXTREMITIES: Left hip tenderness, fluctuance, and warmth. No edema Assessment/Plan Problem List: (1) Abscess of left thigh (2) Cellulitis Assessment/Plan Assessment/Plan ASSESSMENT: 1. Left thigh cellulitis / abscess after skin-popping. 2. Afebrile without leukocytosis. 3. Elevated liver function tests, rule out hepatitis.history of hepatitis C, status post treatment. 4. Thrombocytopenia. 5. Intravenous drug abuse. 6. Hypertension. PLAN: 1. Continue empiric IV vancomycin and cefepime day #5. 2. No known drug allergies. 3. Follow up cultures. 4. Full Code. 5. Monitor Labs 6. See Surgery consult. S/P I&D abscess 07/05/16 TASH ORDAZ Jul 07, 2016 17:14
--- NOTE | 2016-07-07 17:31 | Pulmonology Progress Note ---
Assessment/Plan Problems: (1) Cellulitis (2) IVDU (intravenous drug user) Assessment/Plan s/p I/D improivng iv antibioitcs check cultures surgery consult check wbc Subjective Allergies: Coded Allergies: No Known Allergies (Unverified , 07/02/16) Objective Last 24 Hour Vital Signs Date Time Temp Pulse Resp B/P Pulse Ox O2 Delivery O2 Flow Rate FiO2 07/07/16 16:00 97.7 62 18 153/74 Room Air 07/07/16 12:14 98.3 60 20 154/92 97 Room Air 07/07/16 08:15 97.9 68 20 152/82 99 Room Air 07/07/16 04:00 97.9 61 20 119/61 100 Room Air 07/07/16 02:00 97.9 61 18 119/61 100 Room Air 07/07/16 00:00 98.1 58 18 142/76 100 Room Air 07/06/16 21:54 97.7 07/06/16 19:00 97.7 60 20 132/74 94 Room Air Intake and Output 07/06/16 07/07/16 19:00 07:00 Intake Total 720 ml 375 ml Output Total 850 ml Balance 720 ml -475 ml Intake Oral 720 ml 320 ml IV Total 55 ml Output Urine Total 850 ml # Voids 2 5 # Bowel Movements 1 1 Objective General Appearance: WD/WN Lines, tubes and drains: peripheral, HEENT: normocephalic, anicteric Neck: non-tender, supple Respiratory/Chest: chest wall non-tender, lungs clear Cardiovascular/Chest: normal peripheral pulses, regular rhythm Abdomen: normal bowel sounds, non tender Genitourinary/Rectal: normal genital exam, normal rectal exam Microbiology Date/Time Source Procedure Growth Status 07/05/16 09:00 Blood Blood Culture - Preliminary NO GROWTH AFTER 24 HOURS Resulted 07/05/16 08:45 Blood Blood Culture - Preliminary NO GROWTH AFTER 24 HOURS Resulted 07/05/16 12:00 Hip Left Gram Stain - Final Resulted 07/05/16 12:00 Aerobic Culture - Preliminary Usual Skin Lizzeth Resulted 07/05/16 12:00 Hip Left Anaerobic Culture Pending Resulted Current Medications Medications (Trade) Dose Ordered Sig/Carrington Route PRN Reason Start Time Stop Time Status Last Admin Dose Admin Acetaminophen (Tylenol) 650 mg Q4H PRN ORAL T>100.5 07/03/16 07:15 08/02/16 07:14 07/05/16 05:04 Al Hydroxide/Mg Hydroxide (Mylanta II) 30 ml Q6H PRN ORAL dyspepsia 07/03/16 07:15 08/02/16 07:14 07/06/16 00:15 Cefepime HCl 1 gm/ Dextrose 55 ml @ 110 mls/hr Q12HR IV 07/03/16 09:00 07/10/16 08:59 07/07/16 09:38 Clonidine HCl (Catapres) 0.1 mg Q4H PRN ORAL SBP>160 07/03/16 11:30 08/02/16 11:29 07/06/16 00:35 Dextrose (Dextrose 50%) STAT PRN IV Hypoglycemia 07/03/16 07:15 08/02/16 07:14 Heparin Sodium (Porcine) (Heparin 5000 units/ml) 5,000 units EVERY 12 HOURS SUBQ 07/04/16 21:00 08/03/16 20:59 Lorazepam (Ativan 2mg/ml 1ml) 0.5 mg Q4H PRN IV For Anxiety 07/03/16 07:15 07/10/16 07:14 Methadone HCl (Methadone HCl) 5 mg DAILY ORAL 07/07/16 09:00 07/14/16 08:59 07/07/16 09:40 Methadone HCl (Methadone HCl) 50 mg DAILY ORAL 07/07/16 09:00 07/14/16 08:59 07/07/16 09:40 Morphine Sulfate (Morphine Sulfate) 1 mg Q4H PRN IVP PAIN 4-10 07/03/16 07:15 07/10/16 07:14 07/07/16 15:52 Ondansetron HCl (Zofran) 4 mg Q6H PRN IVP Nausea & Vomiting 07/03/16 07:15 08/02/16 07:14 Polyethylene Glycol (Miralax) 17 gm HSPRN PRN ORAL Constipation 07/03/16 21:00 08/02/16 20:59 Vancomycin HCl 1 ea 1 ea DAILY PRN MISC Per rx protocol 07/03/16 07:15 08/02/16 07:14 Vancomycin HCl/ Dextrose (Vancomycin/D5W) 275 ml @ 183.333 mls/hr Q12HR@0000,1200 IVPB 07/03/16 12:00 07/10/16 11:59 07/07/16 12:39 Zolpidem Tartrate (Ambien) 5 mg HSPRN PRN ORAL Insomnia 07/03/16 21:00 08/02/16 20:59 VINNIE HOSKINS Jul 07, 2016 17:31
[2016-07-07 18:13] LABS: BASOPHILS % (AUTO) 2.3 % (0.0-2.0); EOSINOPHILS % (AUTO) 2.1 % (0.0-3.0); LYMPHOCYTES % (AUTO) 32.9 % (20.0-45.0); MEAN CORPUSCULAR HEMOGLOBIN 27.9 PG (27.0-31.0); MEAN CORPUSCULAR HGB CONC 32.3 G/DL (32.0-36.0); MEAN CORPUSCULAR VOLUME 87 FL (80-99); MEAN PLATELET VOLUME 6.9 FL (6.5-10.1); NEUTROPHILS % (AUTO) 50.8 % (45.0-75.0); PLATELET COUNT 182 K/UL (150-450); RED BLOOD COUNT 4.19 M/UL (4.70-6.10); RED CELL DISTRIBUTION WIDTH 13.4 % (11.6-14.8); WHITE BLOOD COUNT 4.5 K/UL (4.8-10.8)
[2016-07-08] VITALS (7 sets, daily range): BP systolic 136–156; BP diastolic 72–83
[2016-07-08] MEDS: Vancomycin 1250mg/D5W 275ml IVPB SCH ×4 (00:04→13:05)
[2016-07-08 07:54] LABS: ANION GAP 12 (5-15); CALCIUM 8.1 mg/dL (8.6-10.2); CARBON DIOXIDE 22 mEQ/L (20-30); CHLORIDE 102 mEQ/L (98-107); CREATININE 0.8 mg/dL (0.7-1.2); GLOMERULAR FILTRATION RATE > 60 mL/min (>60); HEMOLYSIS 2; POTASSIUM 4.2 mEQ/L (3.4-4.9); SODIUM 136 mEQ/L (135-145)
[2016-07-08] MEDS: Heparin 5000 units/ml inj SUBQ SCH ×2 (09:00→20:21)
[2016-07-08] MEDS: Cefepime HCl 1 GM in D5W 55 ML IV SCH ×2 (09:21→20:17)
--- NOTE | 2016-07-08 12:07 | Internal Med Progress Note ---
Subjective Date of Service: Jul 08, 2016 Physician Name Jc Ordaz Attending Physician Alok Julian MD Current Medications Medications (Trade) Dose Ordered Sig/Carrington Route PRN Reason Start Time Stop Time Status Last Admin Dose Admin Acetaminophen (Tylenol) 650 mg Q4H PRN ORAL T>100.5 07/03/16 07:15 08/02/16 07:14 07/05/16 05:04 Al Hydroxide/Mg Hydroxide (Mylanta II) 30 ml Q6H PRN ORAL dyspepsia 07/03/16 07:15 08/02/16 07:14 07/06/16 00:15 Cefepime HCl 1 gm/ Dextrose 55 ml @ 110 mls/hr Q12HR IV 07/03/16 09:00 07/10/16 08:59 07/08/16 09:21 Clonidine HCl (Catapres) 0.1 mg Q4H PRN ORAL SBP>160 07/03/16 11:30 08/02/16 11:29 07/06/16 00:35 Dextrose (Dextrose 50%) STAT PRN IV Hypoglycemia 07/03/16 07:15 08/02/16 07:14 Heparin Sodium (Porcine) (Heparin 5000 units/ml) 5,000 units EVERY 12 HOURS SUBQ 07/04/16 21:00 08/03/16 20:59 07/07/16 20:40 Lorazepam (Ativan 2mg/ml 1ml) 0.5 mg Q4H PRN IV For Anxiety 07/03/16 07:15 07/10/16 07:14 Methadone HCl (Methadone HCl) 5 mg DAILY ORAL 07/07/16 09:00 07/14/16 08:59 07/08/16 09:22 Methadone HCl (Methadone HCl) 50 mg DAILY ORAL 07/07/16 09:00 07/14/16 08:59 07/08/16 09:22 Morphine Sulfate (Morphine Sulfate) 1 mg Q4H PRN IVP PAIN 4-10 07/03/16 07:15 07/10/16 07:14 07/07/16 15:52 Ondansetron HCl (Zofran) 4 mg Q6H PRN IVP Nausea & Vomiting 07/03/16 07:15 08/02/16 07:14 Polyethylene Glycol (Miralax) 17 gm HSPRN PRN ORAL Constipation 07/03/16 21:00 3/12/17 20:59 Vancomycin HCl 1 ea 1 ea DAILY PRN MISC Per rx protocol 07/03/16 07:15 08/02/16 07:14 Vancomycin HCl/ Dextrose (Vancomycin/D5W) 275 ml @ 183.333 mls/hr Q12HR@0000,1200 IVPB 07/03/16 12:00 07/10/16 11:59 07/08/16 00:04 Zolpidem Tartrate (Ambien) 5 mg HSPRN PRN ORAL Insomnia 07/03/16 21:00 08/02/16 20:59 Allergies: Coded Allergies: No Known Allergies (Unverified , 07/02/16) ROS Limited/Unobtainable: No Constitutional: Reports: no symptoms HEENT: Reports: no symptoms Cardiovascular: Reports: no symptoms Respiratory: Reports: no symptoms Gastrointestinal/Abdominal: Reports: no symptoms Genitourinary: Reports: no symptoms Neurologic/Psychiatric: Reports: no symptoms Subjective 61 YO M admitted with left hip abscess. Cover for Int Med Dr Julian. S/P Incision and drainage 07/05/16 C/O hip pain. Await senior care fac placement. Objective Last Vital Signs Date Time Temp Pulse Resp B/P Pulse Ox O2 Delivery O2 Flow Rate FiO2 07/08/16 11:56 97.3 65 19 156/83 99 Room Air 07/05/16 13:01 3.0 Laboratory Tests Test 07/07/16 17:55 07/08/16 06:40 White Blood Count 4.5 K/UL (4.8-10.8) L Red Blood Count 4.19 M/UL (4.70-6.10) L Hemoglobin 11.7 G/DL (14.2-18.0) L Hematocrit 36.2 % (42.0-52.0) L Mean Corpuscular Volume 87 FL (80-99) Mean Corpuscular Hemoglobin 27.9 PG (27.0-31.0) Mean Corpuscular Hemoglobin Concent 32.3 G/DL (32.0-36.0) Red Cell Distribution Width 13.4 % (11.6-14.8) Platelet Count 182 K/UL (150-450) Mean Platelet Volume 6.9 FL (6.5-10.1) Neutrophils (%) (Auto) 50.8 % (45.0-75.0) Lymphocytes (%) (Auto) 32.9 % (20.0-45.0) Monocytes (%) (Auto) 12.0 % (1.0-10.0) H Eosinophils (%) (Auto) 2.1 % (0.0-3.0) Basophils (%) (Auto) 2.3 % (0.0-2.0) H Sodium Level 136 mEQ/L (135-145) Potassium Level 4.2 mEQ/L (3.4-4.9) Chloride Level 102 mEQ/L (98-107) Carbon Dioxide Level 22 mEQ/L (20-30) Anion Gap 12 (5-15) Blood Urea Nitrogen 10 mg/dL (7-23) Creatinine 0.8 mg/dL (0.7-1.2) Estimat Glomerular Filtration Rate > 60 mL/min (>60) Glucose Level 79 mg/dL (74-106) Calcium Level 8.1 mg/dL (8.6-10.2) L Intake and Output 07/07/16 07/08/16 18:59 06:59 Intake Total 480 ml 1115.000 ml Output Total 400 ml 700 ml Balance 80 ml 415.000 ml Intake Oral 480 ml 840 ml IV Total 275.000 ml Output Urine Total 400 ml 700 ml # Voids 4 4 # Bowel Movements 2 2 Objective Objective GENERAL: No apparent distress. Nontoxic appearing. HEAD: PERRLA, EOMI NECK: Supply, No JVD CARDIOVASCULAR: Regular rate and rhythm. No murmurs. PULMONARY: Clear to auscultation bilaterally. ABDOMEN: Bowel sounds present. Soft, nondistended, and nontender. EXTREMITIES: Left hip tenderness, fluctuance, and warmth. No edema Assessment/Plan Problem List: (1) Abscess of left thigh (2) Cellulitis Status Narrative D/C to senior care facility today when auth from insurance obtained. Assessment/Plan Assessment/Plan ASSESSMENT: 1. Left thigh cellulitis / abscess after skin-popping. 2. Afebrile without leukocytosis. 3. Elevated liver function tests, rule out hepatitis.history of hepatitis C, status post treatment. 4. Thrombocytopenia. 5. Intravenous drug abuse. 6. Hypertension. PLAN: 1. Continue empiric IV vancomycin and cefepime day #5. 2. No known drug allergies. 3. Follow up cultures. 4. Full Code. 5. Monitor Labs 6. See Surgery consult. S/P I&D abscess 07/05/16 JC ORDAZ Jul 08, 2016 12:06
[2016-07-08] MEDS ORDERED: BACTRIM-DS1 EA ORAL (12:08)
[2016-07-08] MEDS: Bactrim DS (160mg/800mg) tab ORAL SCH ×2 (13:05→20:17)
[2016-07-08] MEDS: Morphine Sulfate 2mg/ml Inj IVP PRN ×2 (14:26→20:18)
--- NOTE | 2016-07-08 16:47 | Infectious Diseases Prog Note ---
Assessment/Plan Assessment/Plan ASSESSMENT: 61 y/o male with: // Left thigh cellulitis / abscess after skin popping - SP I&D 07/05 - WCx skin justyna - US: Approximately 7 x 4 x 5 cm complex irregular apparent fluid collection of the left hip soft tissues. - CT: soft tissue cellulitis. No definite walled off collection to suggest abscess is demonstrated. However, exam is somewhat limited // Negative HIV // Fever x1 - resolved, no leukocytosis // Elevated LFTs, mild - h/o HCV SP Rx // Thrombocytopenia // IVDA ( heroin ) // NKDA // Full Code PLAN: - continue empiric IV vancomycin, cefepime d# 8 / , noted bactrim d# 1 added. Ok to complete course with PO bactrim at discharge - f/u final cultures - monitor CBC, temperatures - monitor BMP - wound care Subjective Allergies: Coded Allergies: No Known Allergies (Unverified , 07/02/16) Subjective remains afebrile. no new complaint DC planning ongoing noted bactrim added Objective Vital Signs Last 24 Hour Vital Signs Date Time Temp Pulse Resp B/P Pulse Ox O2 Delivery O2 Flow Rate FiO2 07/08/16 14:56 97.3 07/08/16 11:56 97.3 65 19 156/83 99 Room Air 07/08/16 08:19 98.1 57 19 156/74 100 Room Air 07/08/16 04:00 97.9 61 18 152/77 97 Room Air 07/08/16 00:00 99.5 65 18 153/77 96 Room Air 07/07/16 19:00 98.6 61 18 154/90 99 Room Air Height (Feet): 5 Height (Inches): 10.00 Weight (Pounds): 160 General Appearance: no acute distress Respiratory/Chest: no respiratory distress Cardiovascular: normal rate, regular rhythm Abdomen: normal bowel sounds, soft, non tender, non distended Laboratory Tests Test 07/07/16 17:55 07/08/16 06:40 White Blood Count 4.5 K/UL (4.8-10.8) L Red Blood Count 4.19 M/UL (4.70-6.10) L Hemoglobin 11.7 G/DL (14.2-18.0) L Hematocrit 36.2 % (42.0-52.0) L Mean Corpuscular Volume 87 FL (80-99) Mean Corpuscular Hemoglobin 27.9 PG (27.0-31.0) Mean Corpuscular Hemoglobin Concent 32.3 G/DL (32.0-36.0) Red Cell Distribution Width 13.4 % (11.6-14.8) Platelet Count 182 K/UL (150-450) Mean Platelet Volume 6.9 FL (6.5-10.1) Neutrophils (%) (Auto) 50.8 % (45.0-75.0) Lymphocytes (%) (Auto) 32.9 % (20.0-45.0) Monocytes (%) (Auto) 12.0 % (1.0-10.0) H Eosinophils (%) (Auto) 2.1 % (0.0-3.0) Basophils (%) (Auto) 2.3 % (0.0-2.0) H Sodium Level 136 mEQ/L (135-145) Potassium Level 4.2 mEQ/L (3.4-4.9) Chloride Level 102 mEQ/L (98-107) Carbon Dioxide Level 22 mEQ/L (20-30) Anion Gap 12 (5-15) Blood Urea Nitrogen 10 mg/dL (7-23) Creatinine 0.8 mg/dL (0.7-1.2) Estimat Glomerular Filtration Rate > 60 mL/min (>60) Glucose Level 79 mg/dL (74-106) Calcium Level 8.1 mg/dL (8.6-10.2) L Current Medications Medications (Trade) Dose Ordered Sig/Carrington Route PRN Reason Start Time Stop Time Status Last Admin Dose Admin Acetaminophen (Tylenol) 650 mg Q4H PRN ORAL T>100.5 07/03/16 07:15 08/02/16 07:14 07/05/16 05:04 Al Hydroxide/Mg Hydroxide (Mylanta II) 30 ml Q6H PRN ORAL dyspepsia 07/03/16 07:15 08/02/16 07:14 07/06/16 00:15 Cefepime HCl 1 gm/ Dextrose 55 ml @ 110 mls/hr Q12HR IV 07/03/16 09:00 07/10/16 08:59 07/08/16 09:21 Clonidine HCl (Catapres) 0.1 mg Q4H PRN ORAL SBP>160 07/03/16 11:30 08/02/16 11:29 07/06/16 00:35 Dextrose (Dextrose 50%) STAT PRN IV Hypoglycemia 07/03/16 07:15 08/02/16 07:14 Heparin Sodium (Porcine) (Heparin 5000 units/ml) 5,000 units EVERY 12 HOURS SUBQ 07/04/16 21:00 08/03/16 20:59 07/07/16 20:40 Lorazepam (Ativan 2mg/ml 1ml) 0.5 mg Q4H PRN IV For Anxiety 07/03/16 07:15 07/10/16 07:14 Methadone HCl (Methadone HCl) 5 mg DAILY ORAL 07/07/16 09:00 07/14/16 08:59 07/08/16 09:22 Methadone HCl (Methadone HCl) 50 mg DAILY ORAL 07/07/16 09:00 07/14/16 08:59 07/08/16 09:22 Morphine Sulfate (Morphine Sulfate) 1 mg Q4H PRN IVP PAIN 4-10 07/03/16 07:15 07/10/16 07:14 07/08/16 14:26 Ondansetron HCl (Zofran) 4 mg Q6H PRN IVP Nausea & Vomiting 07/03/16 07:15 08/02/16 07:14 Polyethylene Glycol (Miralax) 17 gm HSPRN PRN ORAL Constipation 07/03/16 21:00 08/02/16 20:59 Trimethoprim/ Sulfamethoxazole (Bactrim-DS) 1 ea TWICE A DAY ORAL 07/08/16 13:00 07/15/16 12:59 07/08/16 13:05 Vancomycin HCl 1 ea 1 ea DAILY PRN MISC Per rx protocol 07/03/16 07:15 08/02/16 07:14 Vancomycin HCl/ Dextrose (Vancomycin/D5W) 275 ml @ 183.333 mls/hr Q12HR@0000,1200 IVPB 07/03/16 12:00 07/10/16 11:59 07/08/16 13:05 Zolpidem Tartrate (Ambien) 5 mg HSPRN PRN ORAL Insomnia 07/03/16 21:00 08/02/16 20:59 YORDAN ALVARADO Jul 08, 2016 16:47
--- NOTE | 2016-07-08 16:53 | General Surgery Progress Note ---
General Surgery-Progress Note Subjective Procedure Performed I&D of abscess of left hip Symptoms: improved Objective Last 24 Hour Vital Signs Date Time Temp Pulse Resp B/P Pulse Ox O2 Delivery O2 Flow Rate FiO2 07/08/16 14:56 97.3 07/08/16 11:56 97.3 65 19 156/83 99 Room Air 07/08/16 08:19 98.1 57 19 156/74 100 Room Air 07/08/16 04:00 97.9 61 18 152/77 97 Room Air 07/08/16 00:00 99.5 65 18 153/77 96 Room Air 07/07/16 19:00 98.6 61 18 154/90 99 Room Air I&O Intake and Output 07/07/16 07/08/16 19:00 07:00 Intake Total 480 ml 1115.000 ml Output Total 400 ml 700 ml Balance 80 ml 415.000 ml Intake Oral 480 ml 840 ml IV Total 275.000 ml Output Urine Total 400 ml 700 ml # Voids 4 4 # Bowel Movements 2 2 Wound: clean Drains: other - packing no drainage no erythema Respiratory: clear Abdomen: soft, flat, non-tender Laboratory Tests Test 07/07/16 17:55 07/08/16 06:40 White Blood Count 4.5 K/UL (4.8-10.8) L Red Blood Count 4.19 M/UL (4.70-6.10) L Hemoglobin 11.7 G/DL (14.2-18.0) L Hematocrit 36.2 % (42.0-52.0) L Mean Corpuscular Volume 87 FL (80-99) Mean Corpuscular Hemoglobin 27.9 PG (27.0-31.0) Mean Corpuscular Hemoglobin Concent 32.3 G/DL (32.0-36.0) Red Cell Distribution Width 13.4 % (11.6-14.8) Platelet Count 182 K/UL (150-450) Mean Platelet Volume 6.9 FL (6.5-10.1) Neutrophils (%) (Auto) 50.8 % (45.0-75.0) Lymphocytes (%) (Auto) 32.9 % (20.0-45.0) Monocytes (%) (Auto) 12.0 % (1.0-10.0) H Eosinophils (%) (Auto) 2.1 % (0.0-3.0) Basophils (%) (Auto) 2.3 % (0.0-2.0) H Sodium Level 136 mEQ/L (135-145) Potassium Level 4.2 mEQ/L (3.4-4.9) Chloride Level 102 mEQ/L (98-107) Carbon Dioxide Level 22 mEQ/L (20-30) Anion Gap 12 (5-15) Blood Urea Nitrogen 10 mg/dL (7-23) Creatinine 0.8 mg/dL (0.7-1.2) Estimat Glomerular Filtration Rate > 60 mL/min (>60) Glucose Level 79 mg/dL (74-106) Calcium Level 8.1 mg/dL (8.6-10.2) L Assessment Additional Comments S/P I&D left hip abscess Plan Additional Comments Can be discharged home with home health nurse for daily packing DAHIANA TEIXEIRA Jul 08, 2016 16:53
--- NOTE | 2016-07-08 17:56 | Pulmonology Progress Note ---
Assessment/Plan Problems: (1) Cellulitis (2) IVDU (intravenous drug user) Assessment/Plan s/p I/D improivng iv antibioitcs check cultures surgery consult check wbc Subjective Allergies: Coded Allergies: No Known Allergies (Unverified , 07/02/16) Objective Last 24 Hour Vital Signs Date Time Temp Pulse Resp B/P Pulse Ox O2 Delivery O2 Flow Rate FiO2 07/08/16 14:56 97.3 07/08/16 11:56 97.3 65 19 156/83 99 Room Air 07/08/16 08:19 98.1 57 19 156/74 100 Room Air 07/08/16 04:00 97.9 61 18 152/77 97 Room Air 07/08/16 00:00 99.5 65 18 153/77 96 Room Air 07/07/16 19:00 98.6 61 18 154/90 99 Room Air Intake and Output 07/07/16 07/08/16 19:00 07:00 Intake Total 480 ml 1115.000 ml Output Total 400 ml 700 ml Balance 80 ml 415.000 ml Intake Oral 480 ml 840 ml IV Total 275.000 ml Output Urine Total 400 ml 700 ml # Voids 4 4 # Bowel Movements 2 2 Objective General Appearance: WD/WN Lines, tubes and drains: peripheral, HEENT: normocephalic, anicteric Neck: non-tender, supple Respiratory/Chest: chest wall non-tender, lungs clear Cardiovascular/Chest: normal peripheral pulses, regular rhythm Abdomen: normal bowel sounds, non tender Genitourinary/Rectal: normal genital exam, normal rectal exam Laboratory Tests 07/08/16 06:40: Sodium Level 136, Potassium Level 4.2, Chloride Level 102, Carbon Dioxide Level 22, Anion Gap 12, Blood Urea Nitrogen 10, Creatinine 0.8, Estimat Glomerular Filtration Rate > 60, Glucose Level 79, Calcium Level 8.1L Current Medications Medications (Trade) Dose Ordered Sig/Car[place] Route PRN Reason Start Time Stop Time Status Last Admin Dose Admin Acetaminophen (Tylenol) 650 mg Q4H PRN ORAL T>100.5 07/03/16 07:15 08/02/16 07:14 07/05/16 05:04 Al Hydroxide/Mg Hydroxide (Mylanta II) 30 ml Q6H PRN ORAL dyspepsia 07/03/16 07:15 08/02/16 07:14 07/06/16 00:15 Cefepime HCl 1 gm/ Dextrose 55 ml @ 110 mls/hr Q12HR IV 07/03/16 09:00 07/10/16 08:59 07/08/16 09:21 Clonidine HCl (Catapres) 0.1 mg Q4H PRN ORAL SBP>160 07/03/16 11:30 08/02/16 11:29 07/06/16 00:35 Dextrose (Dextrose 50%) STAT PRN IV Hypoglycemia 07/03/16 07:15 08/02/16 07:14 Heparin Sodium (Porcine) (Heparin 5000 units/ml) 5,000 units EVERY 12 HOURS SUBQ 07/04/16 21:00 08/03/16 20:59 07/07/16 20:40 Lorazepam (Ativan 2mg/ml 1ml) 0.5 mg Q4H PRN IV For Anxiety 07/03/16 07:15 07/10/16 07:14 Methadone HCl (Methadone HCl) 5 mg DAILY ORAL 07/07/16 09:00 07/14/16 08:59 07/08/16 09:22 Methadone HCl (Methadone HCl) 50 mg DAILY ORAL 07/07/16 09:00 07/14/16 08:59 07/08/16 09:22 Morphine Sulfate (Morphine Sulfate) 1 mg Q4H PRN IVP PAIN 4-10 07/03/16 07:15 07/10/16 07:14 07/08/16 14:26 Ondansetron HCl (Zofran) 4 mg Q6H PRN IVP Nausea & Vomiting 07/03/16 07:15 08/02/16 07:14 Polyethylene Glycol (Miralax) 17 gm HSPRN PRN ORAL Constipation 07/03/16 21:00 08/02/16 20:59 Trimethoprim/ Sulfamethoxazole (Bactrim-DS) 1 ea TWICE A DAY ORAL 07/08/16 13:00 07/15/16 12:59 07/08/16 13:05 Vancomycin HCl 1 ea 1 ea DAILY PRN MISC Per rx protocol 07/03/16 07:15 08/02/16 07:14 Vancomycin HCl/ Dextrose (Vancomycin/D5W) 275 ml @ 183.333 mls/hr Q12HR@0000,1200 IVPB 07/03/16 12:00 07/10/16 11:59 07/08/16 13:05 Zolpidem Tartrate (Ambien) 5 mg HSPRN PRN ORAL Insomnia 07/03/16 21:00 08/02/16 20:59 VINNIE HOSKINS Jul 08, 2016 17:56
[2016-07-09] VITALS: BP 145/69
[2016-07-09] MEDS: Vancomycin 1250mg/D5W 275ml IVPB SCH ×4 (00:18→13:45)
[2016-07-09 03:56] VITALS: BP 139/71
[2016-07-09 07:53] VITALS: BP 155/89
[2016-07-09] MEDS: Bactrim DS (160mg/800mg) tab ORAL SCH ×2 (09:13→18:37)
[2016-07-09] MEDS: Cefepime HCl 1 GM in D5W 55 ML IV SCH ×2 (09:14→20:55)
[2016-07-09] MEDS: Heparin 5000 units/ml inj SUBQ SCH ×2 (09:19→20:56)
[2016-07-09 11:27] VITALS: BP 157/83
--- NOTE | 2016-07-09 15:45 | Infectious Diseases Prog Note ---
Assessment/Plan Assessment/Plan ASSESSMENT: 61 y/o male with: // Left thigh cellulitis / abscess after skin popping - SP I&D 07/05 - WCx skin justyna - US: Approximately 7 x 4 x 5 cm complex irregular apparent fluid collection of the left hip soft tissues. - CT: soft tissue cellulitis. No definite walled off collection to suggest abscess is demonstrated. However, exam is somewhat limited // Negative HIV // Fever x1 - resolved, no leukocytosis // Elevated LFTs, mild - h/o HCV SP Rx // Thrombocytopenia // IVDA ( heroin ) // NKDA // Full Code PLAN: - continue empiric IV vancomycin, cefepime d# / , noted bactrim d# 2 added. Ok to complete course with PO bactrim at discharge - Rx on chart - f/u final cultures - monitor CBC, temperatures - monitor BMP - wound care Subjective Allergies: Coded Allergies: No Known Allergies (Unverified , 07/02/16) Subjective remains afebrile. no new complaint DC planning ongoing Objective Vital Signs Last 24 Hour Vital Signs Date Time Temp Pulse Resp B/P Pulse Ox O2 Delivery O2 Flow Rate FiO2 07/09/16 11:27 98.0 56 19 157/83 99 Room Air 07/09/16 07:53 97.6 57 19 155/89 100 Room Air 07/09/16 03:56 97.5 68 18 139/71 95 Room Air 07/09/16 00:00 97.9 66 18 145/69 99 Room Air 07/08/16 21:26 97.6 61 18 136/72 99 Room Air 07/08/16 20:00 97.6 61 18 136/72 99 Room Air 07/08/16 16:00 97.9 58 20 156/79 99 Room Air Height (Feet): 5 Height (Inches): 10.00 Weight (Pounds): 160 General Appearance: no acute distress Respiratory/Chest: no respiratory distress Cardiovascular: normal rate, regular rhythm Abdomen: normal bowel sounds, soft, non tender, non distended Current Medications Medications (Trade) Dose Ordered Sig/Carrington Route PRN Reason Start Time Stop Time Status Last Admin Dose Admin Acetaminophen (Tylenol) 650 mg Q4H PRN ORAL T>100.5 07/03/16 07:15 08/02/16 07:14 07/05/16 05:04 Al Hydroxide/Mg Hydroxide (Mylanta II) 30 ml Q6H PRN ORAL dyspepsia 07/03/16 07:15 08/02/16 07:14 07/06/16 00:15 Cefepime HCl 1 gm/ Dextrose 55 ml @ 110 mls/hr Q12HR IV 07/03/16 09:00 07/10/16 08:59 07/09/16 09:14 Clonidine HCl (Catapres) 0.1 mg Q4H PRN ORAL SBP>160 07/03/16 11:30 08/02/16 11:29 07/06/16 00:35 Dextrose (Dextrose 50%) STAT PRN IV Hypoglycemia 07/03/16 07:15 08/02/16 07:14 Heparin Sodium (Porcine) (Heparin 5000 units/ml) 5,000 units EVERY 12 HOURS SUBQ 07/04/16 21:00 08/03/16 20:59 07/09/16 09:19 Lorazepam (Ativan 2mg/ml 1ml) 0.5 mg Q4H PRN IV For Anxiety 07/03/16 07:15 07/10/16 07:14 Methadone HCl (Methadone HCl) 5 mg DAILY ORAL 07/07/16 09:00 07/14/16 08:59 07/09/16 09:13 Methadone HCl (Methadone HCl) 50 mg DAILY ORAL 07/07/16 09:00 07/14/16 08:59 07/09/16 09:13 Morphine Sulfate (Morphine Sulfate) 1 mg Q4H PRN IVP PAIN 4-10 07/03/16 07:15 07/10/16 07:14 07/08/16 20:18 Ondansetron HCl (Zofran) 4 mg Q6H PRN IVP Nausea & Vomiting 07/03/16 07:15 08/02/16 07:14 Polyethylene Glycol (Miralax) 17 gm HSPRN PRN ORAL Constipation 07/03/16 21:00 08/02/16 20:59 Trimethoprim/ Sulfamethoxazole (Bactrim-DS) 1 ea TWICE A DAY ORAL 07/08/16 13:00 07/15/16 12:59 07/09/16 09:13 Vancomycin HCl 1 ea 1 ea DAILY PRN MISC Per rx protocol 07/03/16 07:15 08/02/16 07:14 Vancomycin HCl/ Dextrose (Vancomycin/D5W) 275 ml @ 183.333 mls/hr Q12HR@0000,1200 IVPB 07/03/16 12:00 07/10/16 11:59 07/09/16 13:45 Zolpidem Tartrate (Ambien) 5 mg HSPRN PRN ORAL Insomnia 07/03/16 21:00 08/02/16 20:59 YORDAN ALVARADO Jul 09, 2016 15:45
[2016-07-09 16:21] VITALS: BP 153/74
[2016-07-09] MEDS: Morphine Sulfate 2mg/ml Inj IVP PRN (18:38)
--- NOTE | 2016-07-09 18:45 | Internal Med Progress Note ---
Subjective Date of Service: Jul 09, 2016 Physician Name HarrisJc carvalho Attending Physician Alok Julian MD Current Medications Medications (Trade) Dose Ordered Sig/Carrington Route PRN Reason Start Time Stop Time Status Last Admin Dose Admin Acetaminophen (Tylenol) 650 mg Q4H PRN ORAL T>100.5 07/03/16 07:15 08/02/16 07:14 07/05/16 05:04 Al Hydroxide/Mg Hydroxide (Mylanta II) 30 ml Q6H PRN ORAL dyspepsia 07/03/16 07:15 08/02/16 07:14 07/06/16 00:15 Cefepime HCl 1 gm/ Dextrose 55 ml @ 110 mls/hr Q12HR IV 07/03/16 09:00 07/10/16 08:59 07/09/16 09:14 Clonidine HCl (Catapres) 0.1 mg Q4H PRN ORAL SBP>160 07/03/16 11:30 08/02/16 11:29 07/06/16 00:35 Dextrose (Dextrose 50%) STAT PRN IV Hypoglycemia 07/03/16 07:15 08/02/16 07:14 Heparin Sodium (Porcine) (Heparin 5000 units/ml) 5,000 units EVERY 12 HOURS SUBQ 07/04/16 21:00 08/03/16 20:59 07/09/16 09:19 Lorazepam (Ativan 2mg/ml 1ml) 0.5 mg Q4H PRN IV For Anxiety 07/03/16 07:15 07/10/16 07:14 Methadone HCl (Methadone HCl) 5 mg DAILY ORAL 07/07/16 09:00 07/14/16 08:59 07/09/16 09:13 Methadone HCl (Methadone HCl) 50 mg DAILY ORAL 07/07/16 09:00 07/14/16 08:59 07/09/16 09:13 Morphine Sulfate (Morphine Sulfate) 1 mg Q4H PRN IVP PAIN 4-10 07/03/16 07:15 07/10/16 07:14 07/09/16 18:38 Ondansetron HCl (Zofran) 4 mg Q6H PRN IVP Nausea & Vomiting 07/03/16 07:15 08/02/16 07:14 Polyethylene Glycol (Miralax) 17 gm HSPRN PRN ORAL Constipation 07/03/16 21:00 3/12/17 20:59 Trimethoprim/ Sulfamethoxazole (Bactrim-DS) 1 ea TWICE A DAY ORAL 07/08/16 13:00 07/15/16 12:59 07/09/16 18:37 Vancomycin HCl 1 ea 1 ea DAILY PRN MISC Per rx protocol 07/03/16 07:15 08/02/16 07:14 Vancomycin HCl/ Dextrose (Vancomycin/D5W) 275 ml @ 183.333 mls/hr Q12HR@0000,1200 IVPB 07/03/16 12:00 07/10/16 11:59 07/09/16 13:45 Zolpidem Tartrate (Ambien) 5 mg HSPRN PRN ORAL Insomnia 07/03/16 21:00 08/02/16 20:59 Allergies: Coded Allergies: No Known Allergies (Unverified , 07/02/16) ROS Limited/Unobtainable: No Constitutional: Reports: no symptoms HEENT: Reports: no symptoms Cardiovascular: Reports: no symptoms Respiratory: Reports: no symptoms Gastrointestinal/Abdominal: Reports: no symptoms Genitourinary: Reports: no symptoms Neurologic/Psychiatric: Reports: no symptoms Subjective 61 YO M admitted with left hip abscess. Cover for Int Med Dr Julian. S/P Incision and drainage 07/05/16 C/O hip pain. Await group home fac placement. Objective Last Vital Signs Date Time Temp Pulse Resp B/P Pulse Ox O2 Delivery O2 Flow Rate FiO2 07/09/16 16:21 97.9 59 19 153/74 98 Room Air 07/05/16 13:01 3.0 Intake and Output 07/08/16 07/09/16 19:00 07:00 Intake Total 515.000 ml 1226.666 ml Output Total 700 ml Balance -185.000 ml 1226.666 ml Intake Oral 240 ml 860 ml IV Total 275.000 ml 366.666 ml Output Urine Total 700 ml # Voids 4 # Bowel Movements 2 Objective Objective GENERAL: No apparent distress. Nontoxic appearing. HEAD: PERRLA, EOMI NECK: Supply, No JVD CARDIOVASCULAR: Regular rate and rhythm. No murmurs. PULMONARY: Clear to auscultation bilaterally. ABDOMEN: Bowel sounds present. Soft, nondistended, and nontender. EXTREMITIES: Left hip tenderness, fluctuance, and warmth. No edema Assessment/Plan Problem List: (1) Abscess of left thigh (2) Cellulitis Status Narrative D/C to group home facility today when auth from insurance obtained. Assessment/Plan Assessment/Plan ASSESSMENT: 1. Left thigh cellulitis / abscess after skin-popping. 2. Afebrile without leukocytosis. 3. Elevated liver function tests, rule out hepatitis.history of hepatitis C, status post treatment. 4. Thrombocytopenia. 5. Intravenous drug abuse. 6. Hypertension. PLAN: 1. Continue empiric IV vancomycin and cefepime day #5. 2. No known drug allergies. 3. Follow up cultures. 4. Full Code. 5. Monitor Labs 6. See Surgery consult. S/P I&D abscess 07/05/16 JC HARRIS Jul 09, 2016 18:45
[2016-07-09 20:00] VITALS: BP 147/74
--- NOTE | 2016-07-09 21:41 | Pulmonology Progress Note ---
Assessment/Plan Problems: (1) Cellulitis (2) IVDU (intravenous drug user) Assessment/Plan s/p I/D improivng iv antibioitcs check cultures check wbc dc planning Subjective ROS Limited/Unobtainable: No Constitutional: Reports: no symptoms HEENT: Repors: no symptoms Allergies: Coded Allergies: No Known Allergies (Unverified , 07/02/16) Objective Last 24 Hour Vital Signs Date Time Temp Pulse Resp B/P Pulse Ox O2 Delivery O2 Flow Rate FiO2 07/09/16 20:00 97.9 55 19 147/74 93 Room Air 07/09/16 16:21 97.9 59 19 153/74 98 Room Air 07/09/16 11:27 98.0 56 19 157/83 99 Room Air 07/09/16 07:53 97.6 57 19 155/89 100 Room Air 07/09/16 03:56 97.5 68 18 139/71 95 Room Air 07/09/16 00:00 97.9 66 18 145/69 99 Room Air Intake and Output 07/08/16 07/09/16 19:00 07:00 Intake Total 515.000 ml 1226.666 ml Output Total 700 ml Balance -185.000 ml 1226.666 ml Intake Oral 240 ml 860 ml IV Total 275.000 ml 366.666 ml Output Urine Total 700 ml # Voids 4 # Bowel Movements 2 Objective General Appearance: WD/WN Lines, tubes and drains: peripheral, HEENT: normocephalic, anicteric Neck: non-tender, supple Respiratory/Chest: chest wall non-tender, lungs clear Cardiovascular/Chest: normal peripheral pulses, regular rhythm Abdomen: normal bowel sounds, non tender Genitourinary/Rectal: normal genital exam, normal rectal exam Current Medications Medications (Trade) Dose Ordered Sig/Carrington Route PRN Reason Start Time Stop Time Status Last Admin Dose Admin Acetaminophen (Tylenol) 650 mg Q4H PRN ORAL T>100.5 07/03/16 07:15 08/02/16 07:14 07/05/16 05:04 Al Hydroxide/Mg Hydroxide (Mylanta II) 30 ml Q6H PRN ORAL dyspepsia 07/03/16 07:15 08/02/16 07:14 07/06/16 00:15 Cefepime HCl 1 gm/ Dextrose 55 ml @ 110 mls/hr Q12HR IV 07/03/16 09:00 07/10/16 08:59 07/09/16 20:55 Clonidine HCl (Catapres) 0.1 mg Q4H PRN ORAL SBP>160 07/03/16 11:30 08/02/16 11:29 07/06/16 00:35 Dextrose (Dextrose 50%) STAT PRN IV Hypoglycemia 07/03/16 07:15 08/02/16 07:14 Heparin Sodium (Porcine) (Heparin 5000 units/ml) 5,000 units EVERY 12 HOURS SUBQ 07/04/16 21:00 08/03/16 20:59 07/09/16 20:56 Lorazepam (Ativan 2mg/ml 1ml) 0.5 mg Q4H PRN IV For Anxiety 07/03/16 07:15 07/10/16 07:14 Methadone HCl (Methadone HCl) 5 mg DAILY ORAL 07/07/16 09:00 07/14/16 08:59 07/09/16 09:13 Methadone HCl (Methadone HCl) 50 mg DAILY ORAL 07/07/16 09:00 07/14/16 08:59 07/09/16 09:13 Morphine Sulfate (Morphine Sulfate) 1 mg Q4H PRN IVP PAIN 4-10 07/03/16 07:15 07/10/16 07:14 07/09/16 18:38 Ondansetron HCl (Zofran) 4 mg Q6H PRN IVP Nausea & Vomiting 07/03/16 07:15 08/02/16 07:14 Polyethylene Glycol (Miralax) 17 gm HSPRN PRN ORAL Constipation 07/03/16 21:00 08/02/16 20:59 Trimethoprim/ Sulfamethoxazole (Bactrim-DS) 1 ea TWICE A DAY ORAL 07/08/16 13:00 07/15/16 12:59 07/09/16 18:37 Vancomycin HCl 1 ea 1 ea DAILY PRN MISC Per rx protocol 07/03/16 07:15 08/02/16 07:14 Vancomycin HCl/ Dextrose (Vancomycin/D5W) 275 ml @ 183.333 mls/hr Q12HR@0000,1200 IVPB 07/03/16 12:00 07/10/16 11:59 07/09/16 13:45 Zolpidem Tartrate (Ambien) 5 mg HSPRN PRN ORAL Insomnia 07/03/16 21:00 08/02/16 20:59 VINNIE HOSKINS Jul 09, 2016 21:41
[2016-07-10] VITALS: BP 165/73
[2016-07-10] MEDS: Vancomycin 1250mg/D5W 275ml IVPB SCH ×2 (00:12)
[2016-07-10 04:00] VITALS: BP 133/64
[2016-07-10 07:17] LABS: BASOPHILS % (AUTO) 2.6 % (0.0-2.0); EOSINOPHILS % (AUTO) 2.7 % (0.0-3.0); LYMPHOCYTES % (AUTO) 33.4 % (20.0-45.0); MEAN CORPUSCULAR HEMOGLOBIN 27.7 PG (27.0-31.0); MEAN CORPUSCULAR HGB CONC 32.5 G/DL (32.0-36.0); MEAN CORPUSCULAR VOLUME 85 FL (80-99); MEAN PLATELET VOLUME 7.3 FL (6.5-10.1); MONOCYTES % (AUTO) 13.1 % (1.0-10.0); NEUTROPHILS % (AUTO) 48.2 % (45.0-75.0); PLATELET COUNT 163 K/UL (150-450); RED BLOOD COUNT 4.42 M/UL (4.70-6.10); RED CELL DISTRIBUTION WIDTH 13.5 % (11.6-14.8); WHITE BLOOD COUNT 3.7 K/UL (4.8-10.8)
[2016-07-10 07:38] LABS: ANION GAP 13 (5-15); CALCIUM 8.7 mg/dL (8.6-10.2); CARBON DIOXIDE 23 mEQ/L (20-30); CHLORIDE 102 mEQ/L (98-107); GLOMERULAR FILTRATION RATE > 60 mL/min (>60); HEMOLYSIS 49; POTASSIUM 4.7 mEQ/L (3.4-4.9); SODIUM 138 mEQ/L (135-145)
[2016-07-10 07:40] VITALS: BP 142/73
[2016-07-10] MEDS: Heparin 5000 units/ml inj SUBQ SCH (08:47)
[2016-07-10] MEDS: Bactrim DS (160mg/800mg) tab ORAL SCH ×2 (08:47→18:46)
[2016-07-10 11:26] VITALS: BP 149/70
--- NOTE | 2016-07-10 14:09 | Infectious Diseases Prog Note ---
Assessment/Plan Assessment/Plan ASSESSMENT: 61 y/o male with: // Left thigh cellulitis / abscess after skin popping - SP I&D 07/05 - WCx skin justyna - US: Approximately 7 x 4 x 5 cm complex irregular apparent fluid collection of the left hip soft tissues. - CT: soft tissue cellulitis. No definite walled off collection to suggest abscess is demonstrated. However, exam is somewhat limited // Negative HIV // Fever x1 - resolved, no leukocytosis // Elevated LFTs, mild - h/o HCV SP Rx // Thrombocytopenia // IVDA ( heroin ) // NKDA // Full Code PLAN: - noted IV vancomycin, cefepime d# 9 discontinued. continue bactrim d# 3 ( ABX d# / ) - monitor CBC, temperatures, re-culture if acute change - monitor BMP - wound care - DC planning Subjective Allergies: Coded Allergies: No Known Allergies (Unverified , 07/02/16) Subjective remains afebrile. no new complaint DC planning ongoing noted IV ABX discontinued Objective Vital Signs Last 24 Hour Vital Signs Date Time Temp Pulse Resp B/P Pulse Ox O2 Delivery O2 Flow Rate FiO2 07/10/16 11:26 97.5 51 19 149/70 99 Room Air 07/10/16 07:40 97.6 53 19 142/73 100 Room Air 07/10/16 04:00 97.5 55 16 133/64 97 Room Air 07/10/16 00:20 165/73 07/10/16 00:00 97.7 53 16 165/73 99 Room Air 07/09/16 20:00 97.9 55 19 147/74 93 Room Air 07/09/16 16:21 97.9 59 19 153/74 98 Room Air Height (Feet): 5 Height (Inches): 10.00 Weight (Pounds): 160 General Appearance: no acute distress Respiratory/Chest: no respiratory distress Cardiovascular: normal rate, regular rhythm Abdomen: normal bowel sounds, soft, non tender, non distended Laboratory Tests Test 07/10/16 06:05 White Blood Count 3.7 K/UL (4.8-10.8) L Red Blood Count 4.42 M/UL (4.70-6.10) L Hemoglobin 12.3 G/DL (14.2-18.0) L Hematocrit 37.7 % (42.0-52.0) L Mean Corpuscular Volume 85 FL (80-99) Mean Corpuscular Hemoglobin 27.7 PG (27.0-31.0) Mean Corpuscular Hemoglobin Concent 32.5 G/DL (32.0-36.0) Red Cell Distribution Width 13.5 % (11.6-14.8) Platelet Count 163 K/UL (150-450) Mean Platelet Volume 7.3 FL (6.5-10.1) Neutrophils (%) (Auto) 48.2 % (45.0-75.0) Lymphocytes (%) (Auto) 33.4 % (20.0-45.0) Monocytes (%) (Auto) 13.1 % (1.0-10.0) H Eosinophils (%) (Auto) 2.7 % (0.0-3.0) Basophils (%) (Auto) 2.6 % (0.0-2.0) H Sodium Level 138 mEQ/L (135-145) Potassium Level 4.7 mEQ/L (3.4-4.9) Chloride Level 102 mEQ/L (98-107) Carbon Dioxide Level 23 mEQ/L (20-30) Anion Gap 13 (5-15) Blood Urea Nitrogen 13 mg/dL (7-23) Creatinine 1.0 mg/dL (0.7-1.2) Estimat Glomerular Filtration Rate > 60 mL/min (>60) Glucose Level 74 mg/dL (74-106) Calcium Level 8.7 mg/dL (8.6-10.2) Current Medications Medications (Trade) Dose Ordered Sig/Carrington Route PRN Reason Start Time Stop Time Status Last Admin Dose Admin Acetaminophen (Tylenol) 650 mg Q4H PRN ORAL T>100.5 07/03/16 07:15 08/02/16 07:14 07/05/16 05:04 Al Hydroxide/Mg Hydroxide (Mylanta II) 30 ml Q6H PRN ORAL dyspepsia 07/03/16 07:15 08/02/16 07:14 07/06/16 00:15 Clonidine HCl (Catapres) 0.1 mg Q4H PRN ORAL SBP>160 07/03/16 11:30 08/02/16 11:29 07/10/16 00:20 Dextrose (Dextrose 50%) STAT PRN IV Hypoglycemia 07/03/16 07:15 08/02/16 07:14 Heparin Sodium (Porcine) (Heparin 5000 units/ml) 5,000 units EVERY 12 HOURS SUBQ 07/04/16 21:00 08/03/16 20:59 07/10/16 08:47 Methadone HCl (Methadone HCl) 5 mg DAILY ORAL 07/07/16 09:00 07/14/16 08:59 07/10/16 08:47 Methadone HCl (Methadone HCl) 50 mg DAILY ORAL 07/07/16 09:00 07/14/16 08:59 07/10/16 08:46 Ondansetron HCl (Zofran) 4 mg Q6H PRN IVP Nausea & Vomiting 07/03/16 07:15 08/02/16 07:14 Polyethylene Glycol (Miralax) 17 gm HSPRN PRN ORAL Constipation 07/03/16 21:00 08/02/16 20:59 Trimethoprim/ Sulfamethoxazole (Bactrim-DS) 1 ea TWICE A DAY ORAL 07/08/16 13:00 07/15/16 12:59 07/10/16 08:47 Vancomycin HCl (Vanco rx to dose) 1 ea DAILY PRN MISC Per rx protocol 07/03/16 07:15 08/02/16 07:14 Zolpidem Tartrate (Ambien) 5 mg HSPRN PRN ORAL Insomnia 07/03/16 21:00 08/02/16 20:59 YORDAN ALVARADO Jul 10, 2016 14:09
[2016-07-10 16:00] VITALS: BP 132/74
--- NOTE | 2016-07-10 16:28 | Internal Med Progress Note ---
Subjective Date of Service: Jul 10, 2016 Physician Name Jc Ordaz Attending Physician Alok Julian MD Current Medications Medications (Trade) Dose Ordered Sig/Carrington Route PRN Reason Start Time Stop Time Status Last Admin Dose Admin Acetaminophen (Tylenol) 650 mg Q4H PRN ORAL T>100.5 07/03/16 07:15 08/02/16 07:14 07/05/16 05:04 Al Hydroxide/Mg Hydroxide (Mylanta II) 30 ml Q6H PRN ORAL dyspepsia 07/03/16 07:15 08/02/16 07:14 07/06/16 00:15 Clonidine HCl (Catapres) 0.1 mg Q4H PRN ORAL SBP>160 07/03/16 11:30 08/02/16 11:29 07/10/16 00:20 Dextrose (Dextrose 50%) STAT PRN IV Hypoglycemia 07/03/16 07:15 08/02/16 07:14 Heparin Sodium (Porcine) (Heparin 5000 units/ml) 5,000 units EVERY 12 HOURS SUBQ 07/04/16 21:00 08/03/16 20:59 07/10/16 08:47 Methadone HCl (Methadone HCl) 5 mg DAILY ORAL 07/07/16 09:00 07/14/16 08:59 07/10/16 08:47 Methadone HCl (Methadone HCl) 50 mg DAILY ORAL 07/07/16 09:00 07/14/16 08:59 07/10/16 08:46 Ondansetron HCl (Zofran) 4 mg Q6H PRN IVP Nausea & Vomiting 07/03/16 07:15 08/02/16 07:14 Polyethylene Glycol (Miralax) 17 gm HSPRN PRN ORAL Constipation 07/03/16 21:00 08/02/16 20:59 Trimethoprim/ Sulfamethoxazole (Bactrim-DS) 1 ea TWICE A DAY ORAL 07/08/16 13:00 07/15/16 12:59 07/10/16 08:47 Vancomycin HCl (Vanco rx to dose) 1 ea DAILY PRN MISC Per rx protocol 07/03/16 07:15 08/02/16 07:14 Zolpidem Tartrate (Ambien) 5 mg HSPRN PRN ORAL Insomnia 07/03/16 21:00 08/02/16 20:59 Allergies: Coded Allergies: No Known Allergies (Unverified , 07/02/16) ROS Limited/Unobtainable: No Constitutional: Reports: no symptoms HEENT: Reports: no symptoms Cardiovascular: Reports: no symptoms Respiratory: Reports: no symptoms Gastrointestinal/Abdominal: Reports: no symptoms Genitourinary: Reports: no symptoms Neurologic/Psychiatric: Reports: no symptoms Subjective 61 YO M admitted with left hip abscess. Cover for Int Med Dr Julian. S/P Incision and drainage 07/05/16 C/O hip pain. Await senior living fac placement. Objective Last Vital Signs Date Time Temp Pulse Resp B/P Pulse Ox O2 Delivery O2 Flow Rate FiO2 07/10/16 16:00 97.3 58 20 132/74 93 Room Air 07/05/16 13:01 3.0 Laboratory Tests Test 07/10/16 06:05 White Blood Count 3.7 K/UL (4.8-10.8) L Red Blood Count 4.42 M/UL (4.70-6.10) L Hemoglobin 12.3 G/DL (14.2-18.0) L Hematocrit 37.7 % (42.0-52.0) L Mean Corpuscular Volume 85 FL (80-99) Mean Corpuscular Hemoglobin 27.7 PG (27.0-31.0) Mean Corpuscular Hemoglobin Concent 32.5 G/DL (32.0-36.0) Red Cell Distribution Width 13.5 % (11.6-14.8) Platelet Count 163 K/UL (150-450) Mean Platelet Volume 7.3 FL (6.5-10.1) Neutrophils (%) (Auto) 48.2 % (45.0-75.0) Lymphocytes (%) (Auto) 33.4 % (20.0-45.0) Monocytes (%) (Auto) 13.1 % (1.0-10.0) H Eosinophils (%) (Auto) 2.7 % (0.0-3.0) Basophils (%) (Auto) 2.6 % (0.0-2.0) H Sodium Level 138 mEQ/L (135-145) Potassium Level 4.7 mEQ/L (3.4-4.9) Chloride Level 102 mEQ/L (98-107) Carbon Dioxide Level 23 mEQ/L (20-30) Anion Gap 13 (5-15) Blood Urea Nitrogen 13 mg/dL (7-23) Creatinine 1.0 mg/dL (0.7-1.2) Estimat Glomerular Filtration Rate > 60 mL/min (>60) Glucose Level 74 mg/dL (74-106) Calcium Level 8.7 mg/dL (8.6-10.2) Intake and Output 07/09/16 07/10/16 19:00 07:00 Intake Total 520 ml 846.666 ml Output Total 300 ml Balance 220 ml 846.666 ml Intake Oral 520 ml 480 ml IV Total 366.666 ml Output Urine Total 300 ml # Voids 1 4 # Bowel Movements 1 Objective Objective GENERAL: No apparent distress. Nontoxic appearing. HEAD: PERRLA, EOMI NECK: Supply, No JVD CARDIOVASCULAR: Regular rate and rhythm. No murmurs. PULMONARY: Clear to auscultation bilaterally. ABDOMEN: Bowel sounds present. Soft, nondistended, and nontender. EXTREMITIES: Left hip tenderness, fluctuance, and warmth. No edema Assessment/Plan Problem List: (1) Abscess of left thigh (2) Cellulitis Status Narrative D/C to senior living facility today when auth from insurance obtained-see case management note. Assessment/Plan Assessment/Plan ASSESSMENT: 1. Left thigh cellulitis / abscess after skin-popping. 2. Afebrile without leukocytosis. 3. Elevated liver function tests, rule out hepatitis.history of hepatitis C, status post treatment. 4. Thrombocytopenia. 5. Intravenous drug abuse. 6. Hypertension. PLAN: 1. Continue empiric IV vancomycin and cefepime day #5. 2. No known drug allergies. 3. Follow up cultures. 4. Full Code. 5. Monitor Labs 6. See Surgery consult. S/P I&D abscess 07/05/16 JC ORDAZ Jul 10, 2016 16:28
[2016-07-10] MEDS ORDERED: Morphine Sulfate 2mg/ml Inj IVP PRN (16:30)
--- NOTE | 2016-07-10 16:49 | Pulmonology Progress Note ---
Assessment/Plan Assessment/Plan ASSESSMENT cellulitis abscess LLE s/p I&D left hip abscess IVDA hepatitis C PLAN OF CARE IV abx ID follows blood cx negative wound cx negative L femur CT -soft tissue cellulitis. No definite walled off collection to suggest abscess is demonstrated. However, exam is somewhat limited by image noise and use of early arterial phase acquisition. If there is high clinical suspicion of abscess, consider further evaluation with ultrasound subsequently US L LE -Approximately 7 x 4 x 5 cm complex irregular apparent fluid collection of the left hip soft tissues. Abscess should be considered and further evaluation recommended. 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 dc home with for IV abx and wound care case discussed and evaluated by supervising physician Subjective Allergies: Coded Allergies: No Known Allergies (Unverified , 07/02/16) Subjective afebrile, no leukocytosis s/p I&D L hip abscess surgeon cleared for discharge Objective Last 24 Hour Vital Signs Date Time Temp Pulse Resp B/P Pulse Ox O2 Delivery O2 Flow Rate FiO2 07/10/16 16:00 97.3 58 20 132/74 93 Room Air 07/10/16 11:26 97.5 51 19 149/70 99 Room Air 07/10/16 07:40 97.6 53 19 142/73 100 Room Air 07/10/16 04:00 97.5 55 16 133/64 97 Room Air 07/10/16 00:20 165/73 07/10/16 00:00 97.7 53 16 165/73 99 Room Air 07/09/16 20:00 97.9 55 19 147/74 93 Room Air Intake and Output 07/09/16 07/10/16 19:00 07:00 Intake Total 520 ml 846.666 ml Output Total 300 ml Balance 220 ml 846.666 ml Intake Oral 520 ml 480 ml IV Total 366.666 ml Output Urine Total 300 ml # Voids 1 4 # Bowel Movements 1 General Appearance: no acute distress HEENT: normocephalic, atraumatic, anicteric, mucous membranes moist, PERRL Respiratory/Chest: lungs clear, no respiratory distress, no accessory muscle use Cardiovascular: normal peripheral pulses, normal rate, regular rhythm, no JVD Abdomen: normal bowel sounds, soft, non tender, non distended Genitourinary: normal external genitalia Extremities: pedal pulses normal Skin: other - L hip area with surrounding erythema, warmth, mild TTP, dressing C/D/I Neurologic/Psychiatric: alert, oriented x 3, responsive, normal mood/affect Lymphatic: no neck adenopathy Musculoskeletal: normal muscle bulk Laboratory Tests 07/10/16 06:05: White Blood Count 3.7L, Red Blood Count 4.42L, Hemoglobin 12.3L, Hematocrit 37.7L, Mean Corpuscular Volume 85, Mean Corpuscular Hemoglobin 27.7, Mean Corpuscular Hemoglobin Concent 32.5, Red Cell Distribution Width 13.5, Platelet Count 163, Mean Platelet Volume 7.3, Neutrophils (%) (Auto) 48.2, Lymphocytes (% ) (Auto) 33.4, Monocytes (%) (Auto) 13.1H, Eosinophils (%) (Auto) 2.7, Basophils (%) (Auto) 2.6H, Sodium Level 138, Potassium Level 4.7, Chloride Level 102, Carbon Dioxide Level 23, Anion Gap 13, Blood Urea Nitrogen 13, Creatinine 1.0, Estimat Glomerular Filtration Rate > 60, Glucose Level 74, Calcium Level 8.7 Current Medications Medications (Trade) Dose Ordered Sig/Car[place] Route PRN Reason Start Time Stop Time Status Last Admin Dose Admin Acetaminophen (Tylenol) 650 mg Q4H PRN ORAL T>100.5 07/03/16 07:15 08/02/16 07:14 07/05/16 05:04 Al Hydroxide/Mg Hydroxide (Mylanta II) 30 ml Q6H PRN ORAL dyspepsia 07/03/16 07:15 08/02/16 07:14 07/06/16 00:15 Clonidine HCl (Catapres) 0.1 mg Q4H PRN ORAL SBP>160 07/03/16 11:30 08/02/16 11:29 07/10/16 00:20 Dextrose (Dextrose 50%) STAT PRN IV Hypoglycemia 07/03/16 07:15 08/02/16 07:14 Heparin Sodium (Porcine) (Heparin 5000 units/ml) 5,000 units EVERY 12 HOURS SUBQ 07/04/16 21:00 08/03/16 20:59 07/10/16 08:47 Methadone HCl (Methadone HCl) 5 mg DAILY ORAL 07/07/16 09:00 07/14/16 08:59 07/10/16 08:47 Methadone HCl (Methadone HCl) 50 mg DAILY ORAL 07/07/16 09:00 07/14/16 08:59 07/10/16 08:46 Morphine Sulfate (Morphine Sulfate) 1 mg Q4H PRN IVP For Pain 07/10/16 16:30 07/17/16 16:29 UNV Ondansetron HCl (Zofran) 4 mg Q6H PRN IVP Nausea & Vomiting 07/03/16 07:15 08/02/16 07:14 Polyethylene Glycol (Miralax) 17 gm HSPRN PRN ORAL Constipation 07/03/16 21:00 08/02/16 20:59 Trimethoprim/ Sulfamethoxazole (Bactrim-DS) 1 ea TWICE A DAY ORAL 07/08/16 13:00 07/15/16 12:59 07/10/16 08:47 Vancomycin HCl (Vanco rx to dose) 1 ea DAILY PRN MISC Per rx protocol 07/03/16 07:15 08/02/16 07:14 Zolpidem Tartrate (Ambien) 5 mg HSPRN PRN ORAL Insomnia 07/03/16 21:00 08/02/16 20:59 Suhail (West)Christi NP Jul 10, 2016 16:49
--- NOTE | 2016-07-10 21:51 | Diagnostic Imaging Report ---
APPROVED REPORT CPT Code: 48028 Present Symptoms Lower Extremity Pain: Bilateral BILATERAL: Imaging reveals a patent deep venous system bilaterally. There is no evidence of thrombus within the femoral, popliteal or tibial segments. The greater saphenous veins are also within normal limits. Doppler indicates normal spontaneous flow within these segments.
--- NOTE | 2016-07-10 21:51 | Diagnostic Imaging Report ---
APPROVED REPORT CPT Code: 46444 Symptoms Claudication : BILATERAL: Common femoral artery waveform analysis is within normal limits at rest. Color flow duplex sonography reveals patency of the superficial femoral, popliteal, and tibial arteries. There is no evidence of stenosis or occlusion within these segments. Doppler tibial artery waveform analysis is compatible with minimal ischemia bilaterally.
--- NOTE | 2016-07-13 10:28 | Discharge Summary ---
Discharge Summary Hospital Course Date of Admission Jul 03, 2016 at 00:42 Date of Discharge Jul 10, 2016 at 20:22 Admitting Diagnosis leg abscess HPI Jong Bee is a 61 year old male who was admitted on Jul 03, 2016 at 00:42 for Leg Abscess Hospital Course dc summary dictated # [id number] Discharge Medications New Medications: Trimethoprim/Sulfamethoxazole (Bactrim Ds Tablet) 1 Each Tablet 1 EA ORAL TWICE A DAY for 7 Days, TAB Continued Medications: Hydrochlorothiazide* (Hydrochlorothiazide*) 12.5 Mg Tablet 12.5 MG ORAL DAILY, TAB Ibuprofen* (Motrin*) 600 Mg Tablet 600 MG ORAL FOUR TIMES A DAY, #30 TAB 0 Refills Lisinopril (Lisinopril*) 5 Mg Tablet 5 MG ORAL DAILY, TAB Methadone Hcl* (Methadone*) 5 Mg Tablet 5 MG PO DAILY, #10 TAB 0 Refills Discharge Condition Upon Discharge: stable Discharge Disposition Patient was discharged to Home with Home Health(06) Discharge Diagnoses: Suhail (Nedaisaias)Christi NP Jul 13, 2016 10:28
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
== END 2016-07-10 20:22 | disposition home health service (06) | DRG 364 ==
LOC: EMR 23:16 → 4E 07-03 00:42 → EDBEDREQ 07-03 01:57
PROC: 0J9M0ZZ Drainage of Left Upper Leg Subcutaneous Tissue and Fascia, Open Approach (ICD-10-PCS; principal; 2016-07-05 11:00)
DX: L02.416 Cutaneous abscess of left lower limb (principal); D69.6 Thrombocytopenia, unspecified; K76.9 Liver disease, unspecified; Z87.898 Personal history of other specified conditions; I10 Essential (primary) hypertension; B19.20 Unspecified viral hepatitis C without hepatic coma; L03.116 Cellulitis of left lower limb; F11.10 Opioid abuse, uncomplicated
CPT/HCPCS: 36415; 71010; 76881; 80048; 80053; 80061; 80202; 82248; 82553; 83036; 83735; 84100; 84443; 85007; 85025; 85610; 85730; 86703; 86705; 86709; 86803; 86850; 86900; 86901; 87040; 87070; 87075; 87205; 87340; 93005; 93925; 93970; 94003; 94150; J2250; J2405

== ENCOUNTER 2016-10-13 01:14 | Emergency (ER) | payer OTHER ==
[~2016-10-13] VITALS: Ht 177.8 cm; Wt 72.6 kg
[~2016-10-13 01:14] MED LIST: BACTRIM-DS1 EA ORAL; HYDROCHLOROTH12.5 MG ORAL; IBUPROFEN600 MG ORAL; LISINOPRIL5 MG ORAL; METHADONE HCL5 MG PO
[2016-10-13] MEDS ORDERED: Lisinopril 10mg tab ORAL ONE (02:00)
[2016-10-13 02:10] VITALS: BP 213/89
[2016-10-13] MEDS ORDERED: ACETAMINOPHEN-1 EAC1 ORAL (03:30)
[2016-10-13] MEDS ORDERED: HYDROCHLOROTHIA25 MG ORAL (03:30)
[2016-10-13] MEDS ORDERED: LISINOPRIL10 MG ORAL (03:30)
[2016-10-13 04:00] VITALS: BP 195/87
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
--- NOTE | 2016-10-13 12:32 | Diagnostic Imaging Report ---
Indications: Headache, trauma Technique: Spiral acquisitions obtained through the brain. Angled axial and coronal 5 x 5 mm slices were reconstructed. Total dose length product 1425 mGycm. CTDI vol(s) 70 mGy. Dose reduction achieved using automated exposure control Comparison: None Findings: There is slight image degradation due to motion artifact. There is mild age-related enlargement of the ventricles and extra axial CSF spaces. No acute hemorrhage or edema. No mass effect or midline shift. The there is a tripartite fracture of the left zygomatic arch. The calvarium is intact. Sinuses are clear. Impression: Left zygomatic arch fracture Mild age-related changes. Negative for acute intracranial bleed or mass effect This agrees with the preliminary interpretation provided overnight by [facility]. The CT scanner at [facility] is accredited by the [employer] and the scans are performed using protocols designed to limit radiation exposure to as low as reasonably achievable to attain images of sufficient resolution adequate for diagnostic evaluation.
== END 2016-10-13 04:00 | disposition home or self-care (01) ==
LOC: EMR 01:44
DX: S02.40FA Zygomatic fracture, left side, initial encounter for closed fracture (principal); Y08.89XA Assault by other specified means, initial encounter; Y92.89 Other specified places as the place of occurrence of the external cause; I10 Essential (primary) hypertension
CPT/HCPCS: 70450; 99284